=== PATIENT | female | born 1935 | race Caucasian/White ===

== ENCOUNTER 2018-03-07 16:54 | Emergency (ER) | payer MEDICARE, BC ==
[2018-03-07 19:13] VITALS: BP 132/99
--- NOTE | 2018-03-07 19:55 | EDM.PDOC ---
ED HPI GENERAL MEDICAL PROBLEM - General Chief Complaint: Head Injury Time Seen by Provider: 03/07/18 17:01 Source of Information: Reports: Patient, EMS History Limitations: Reports: No Limitations - History of Present Illness INITIAL COMMENTS - FREE TEXT/NARRATIVE: States that she has been dealing with chronic L knee and low back pain. Pt. states that these issues make it hard to walk, and she states that she subsequently fell forward in the parking lot of the grocery store, striking the R side of her head and landing on her knees. She did not have a LOC. No chest pain or shortness of breath pre or post fall. Duration: Constant Location: Reports: Face, Lower Extremity, Right - Related Data Allergies Allergy/AdvReac Type Severity Reaction Status Date / Time codeine Allergy Other Verified 03/07/18 17:21 Home Meds: Home Meds ALPRAZolam [Xanax] 0.25 mg PO TID PRN 08/10/16 [History] Acetaminophen 2 tab PO Q8H PRN 08/10/16 [History] Aspirin 325 mg PO BID 08/10/16 [History] Calcium Carbonate [Tums] 1 tab PO QID PRN 08/10/16 [History] Doxepin [SINEquan] 2 cap PO BEDTIME 08/10/16 [History] FLUoxetine HCl [Fluoxetine HCl] 40 mg PO DAILY 08/10/16 [History] Metoprolol Tartrate [Lopressor] 100 mg PO BID 08/10/16 [History] Multivitamin [Multivitamins] 1 cap PO DAILY 08/10/16 [History] Ranitidine [Zantac] 150 mg PO BID 08/10/16 [History] Simvastatin [Zocor] 80 mg PO BEDTIME 08/10/16 [History] amLODIPine [Norvasc] 1 tab PO DAILY 08/10/16 [History] metFORMIN HCl [Metformin HCl] 1,000 mg PO BIDMEALS 08/10/16 [History] Docusate Sodium/Sennosides [Senna Plus] 1 tab PO DAILY tablet 08/22/16 [Rx] Enalapril [Vasotec] 20 mg PO BID #60 tablet 08/22/16 [Rx] traMADol [Ultram] 50 mg PO Q4H PRN #50 tablet 08/22/16 [Rx] Past Medical History Cardiovascular History: Reports: CAD, Hypertension Gastrointestinal History: Reports: Colon Polyp, GERD, Helicobacter Pylori Other Genitourinary History: bladder repair Musculoskeletal History: Reports: Arthritis Psychiatric History: Reports: Anxiety Endocrine/Metabolic History: Reports: Diabetes, Type II - Infectious Disease History Infectious Disease History: Reports: Helicobacter Pylori - Past Surgical History HEENT Surgical History: Reports: Cataract Surgery, Tonsillectomy Female Surgical History: Reports: Hysterectomy Musculoskeletal Surgical History: Reports: Shoulder Replacement Oncologic Surgical History: Reports: Biopsy of Breast Social & Family History - Family History Family Medical History: Noncontributory - Tobacco Use Smoking Status *Q: Never Smoker ED ROS GENERAL - Review of Systems Review Of Systems: See Below Constitutional: Reports: No Symptoms HEENT: Reports: Other (abrasion/contusion R side of face. No other trauma noted. ) Respiratory: Reports: No Symptoms Cardiovascular: Reports: No Symptoms Endocrine: Reports: No Symptoms GI/Abdominal: Reports: No Symptoms : Reports: No Symptoms Musculoskeletal: Reports: Joint Pain, Other (R knee contusion/abrasion) Skin: Reports: No Symptoms Neurological: Reports: No Symptoms Psychiatric: Reports: No Symptoms Hematologic/Lymphatic: Reports: No Symptoms Immunologic: Reports: No Symptoms ED EXAM, HEAD INJURY - Physical Exam Exam: See Below Exam Limited By: No Limitations General Appearance: Alert, WD/WN, No Apparent Distress Head: Normocephalic, Scalp Ecchymosis Eyes: Bilateral Eye: EOMI, Normal Fundi, Normal Inspection, PERRL Ears: Normal External Exam, Normal Canal, Hearing Grossly Normal, Normal TMs Nose: Normal Inspection, Normal Mucousa, No Blood Throat/Mouth: Normal Inspection, Normal Lips, Normal Teeth, Normal Gums, Normal Oropharynx, Normal Voice, No Airway Compromise Neck: Non-Tender, Full Range of Motion, Normal Alignment, Normal Inspection Respiratory: No Respiratory Distress, Lungs Clear, Normal Breath Sounds, No Accessory Muscle Use, Chest Non-Tender Cardiovascular: Normal Peripheral Pulses, Regular Rate, Rhythm, No Edema, No Gallop, No JVD, No Murmur, No Rub GI/Abdominal Exam: Normal Bowel Sounds, Soft, Non-Tender, No Organomegaly, No Distention, No Abnormal Bruit, No Mass (Female) Exam: Deferred Rectal (Female) Exam: Deferred Back Exam: Full Range of Motion, Normal Inspection, NT Extremities: Other (abrasions and contusion to knees) 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 nml As Tested, No Motor/Sensory Deficits, Alert, Normal Mood/Affect, Oriented x 3 Skin: Normal Color, Warm/Dry Course - Vital Signs Last Recorded V/S: Last Vital Signs Temp 37.2 C 03/07/18 16:54 Pulse 68 03/07/18 18:00 Resp 14 03/07/18 18:00 BP 132/99 H 03/07/18 18:00 Pulse Ox 98 03/07/18 18:00 - Orders/Labs/Meds Orders: Active Orders 24 hr Category Date Time Status Cervical Spine wo Cont [CT] Stat Exams 03/07/18 17:02 Taken Head wo Cont [CT] Stat Exams 03/07/18 17:02 Taken Knee 3V Rt [CR] Stat Exams 03/07/18 17:04 Taken Lumbar Spine 2 or 3V [CR] Stat Exams 03/07/18 17:03 Taken Pelvis 1V or 2V [CR] Routine Exams 03/07/18 Taken - Radiology Interpretation Free Text/Narrative:: CT brain and c-spine were negative. Plain films of the R knee are negative. Departure - Departure Time of Disposition: 19:18 Disposition: Home, Self-Care 01 Clinical Impression: Closed head injury, Facial abrasion - Discharge Information Instructions: Head Injury, Adult, Low Back Sprain Referrals: Renae Hudson MD [Primary Care Provider] - Forms: ED Department Discharge Additional Instructions: Home to rest. Contact the clinic tomorrow ([phone]) to set up a ER follow-up visit in the next 5-7 days. Return to ER if worsening headache, confusion, chest pain, or shortness of breath. - My Orders Last 24 Hours: My Active Orders 03/07/18 Pelvis 1V or 2V [CR] Routine 03/07/18 17:02 Cervical Spine wo Cont [CT] Stat Head wo Cont [CT] Stat 03/07/18 17:03 Lumbar Spine 2 or 3V [CR] Stat 03/07/18 17:04 Knee 3V Rt [CR] Stat - Assessment/Plan Last 24 Hours: My Active Orders 03/07/18 Pelvis 1V or 2V [CR] Routine 03/07/18 17:02 Cervical Spine wo Cont [CT] Stat Head wo Cont [CT] Stat 03/07/18 17:03 Lumbar Spine 2 or 3V [CR] Stat 03/07/18 17:04 Knee 3V Rt [CR] Stat
== END 2018-03-07 19:18 | disposition home or self-care (01) ==
LOC: VM.ED 16:54
DX: S09.90XA Unspecified injury of head, initial encounter (principal); S00.03XA Contusion of scalp, initial encounter; S80.02XA Contusion of left knee, initial encounter; S00.81XA Abrasion of other part of head, initial encounter; I10 Essential (primary) hypertension; E11.9 Type 2 diabetes mellitus without complications; K21.9 Gastro-esophageal reflux disease without esophagitis; F41.9 Anxiety disorder, unspecified; Z79.84 Long term (current) use of oral hypoglycemic drugs; Z79.899 Other long term (current) drug therapy; Z79.82 Long term (current) use of aspirin; Z88.5 Allergy status to narcotic agent; W01.198A Fall on same level from slipping, tripping and stumbling with subsequent striking against other object, initial encounter; Y92.481 Parking lot as the place of occurrence of the external cause
CPT/HCPCS: 70450; 72100; 72125; 72170; 73562-RT; 99284

== ENCOUNTER 2019-02-11 21:44 | Observation (INO) | payer MEDICARE, BC ==
--- NOTE | 2019-02-11 21:56 | EDM.PDOC ---
ED HPI GENERAL MEDICAL PROBLEM - General Chief Complaint: Head Injury Stated Complaint: Fell in bathtub Time Seen by Provider: 02/11/19 21:50 Source of Information: Reports: Patient, EMS, Family History Limitations: Reports: No Limitations - History of Present Illness INITIAL COMMENTS - FREE TEXT/NARRATIVE: The patient lives alone in an apartment. She states that she got tangled up with the rug outside of her shower and she fell backwards into the bathtub. She said that she could not get up and she yelled and could not get any attention from anybody and then she said that she prayed to her late . About an hour and half later she was able to get herself out of the tub and get assistance. As soon as she arrived we put a c-collar on. She did have pain about her neck. We did do a CAT scan of the head and neck. I also did blood work and was awaiting a urine test when I admitted her for observation. Please use this note as her admitting observation note. She came accompanied by her daughter and granddaughter. The patient has fallen before. Her primary is Dr. Alexis. The patient is not on any blood thinners. She did have a slightly low magnesium. Chest x-ray will be done. EKG was done. This was reviewed by myself and signed. We also gave her 800 mg of magnesium oxide. She will get a second dose in the morning. The family was comfortable with this plan. In the family is going to move forward with a "life alert". And also most likely look into assisted living/intermediate which I think is well overdue. The patient did have an emesis 1. She did not lose consciousness. The family was concerned that the patient did lose consciousness and was concerned about bloody emesis. However I don't believe that this was the case after talking and interviewing the patient. He has good strength bilaterally. After the CAT scan was read we are able to take off her c-collar. We did not see any blood on the back of her head no lump or bump. No hematoma. She will be sore from laying in the tub for 90 minutes. I will have her in for observation. Gait was assessed by the nurse and myself and she was walking well by the end of her stay here in the emergency room. I'll require questions are satisfied upon departure to the second floor for observation. I will be signing off of her case to [place]. Location: Reports: Head, Neck Quality: Reports: Ache Severity: Mild Context: Reports: Trauma Associated Symptoms: Reports: No Other Symptoms Neck Pain Score (Numeric/FACES): 4 - Related Data Allergies Allergy/AdvReac Type Severity Reaction Status Date / Time codeine Allergy Confusion Verified 02/11/19 22:22 Home Meds: Home Meds Acetaminophen 1 tab PO Q8H PRN 08/10/16 [History] Aspirin 81 mg PO DAILY 08/10/16 [History] Calcium Carbonate [Tums] 1 tab PO QID PRN 08/10/16 [History] Doxepin [SINEquan] 50 mg PO BEDTIME 08/10/16 [History] FLUoxetine HCl [Fluoxetine HCl] 40 mg PO DAILY 08/10/16 [History] Metoprolol Tartrate [Lopressor] 100 mg PO BID 08/10/16 [History] Simvastatin [Zocor] 80 mg PO BEDTIME 08/10/16 [History] amLODIPine [Norvasc] 1 tab PO DAILY 08/10/16 [History] metFORMIN HCl [Metformin HCl] 1,000 mg PO BIDMEALS 08/10/16 [History] Enalapril [Vasotec] 20 mg PO BID #60 tablet 08/22/16 [Rx] Ergocalciferol (Vitamin D2) [Vitamin D2] 2,000 unit PO DAILY 02/12/19 [History] Ferrous Sulfate 325 mg PO DAILY 02/12/19 [History] Ibuprofen [Advil] 400 mg PO Q6HR PRN 02/12/19 [History] Loperamide [Imodium] 2 mg PO ASDIRECTED PRN 02/12/19 [History] Sennosides/Docusate Sodium [Senokot-S Tablet] 1 each PO ASDIRECTED 02/12/19 [ History] busPIRone [Buspar] 7.5 mg PO BID 02/12/19 [History] Past Medical History Cardiovascular History: Reports: CAD, Hypertension Gastrointestinal History: Reports: Colon Polyp, GERD, Helicobacter Pylori Other Genitourinary History: bladder repair Musculoskeletal History: Reports: Arthritis Psychiatric History: Reports: Anxiety Endocrine/Metabolic History: Reports: Diabetes, Type II - Infectious Disease History Infectious Disease History: Reports: Helicobacter Pylori - Past Surgical History HEENT Surgical History: Reports: Cataract Surgery, Tonsillectomy Female Surgical History: Reports: Hysterectomy Musculoskeletal Surgical History: Reports: Shoulder Replacement Oncologic Surgical History: Reports: Biopsy of Breast Social & Family History - Family History Family Medical History: Noncontributory ED ROS GENERAL - Review of Systems Review Of Systems: ROS reveals no pertinent complaints other than HPI. ED EXAM, HEAD INJURY - Physical Exam Exam: See Below Exam Limited By: No Limitations General Appearance: Alert, Mild Distress, Moderate Distress Head: Atraumatic, Normocephalic. No: Scalp Lacerations, Scalp Swelling, Scalp Abrasions, Scalp Ecchymosis, Scalp Hematoma, Scalp Tenderness, Active Bleeding, Fung's Sign, Facial Tenderness Eyes: Bilateral Eye: EOMI, Normal Inspection, PERRL Ears: Normal External Exam Nose: Normal Inspection, Normal Mucousa, No Blood Throat/Mouth: Normal Inspection, Normal Lips, Normal Teeth, Normal Gums, Normal Oropharynx, Normal Voice, No Airway Compromise, Other (She was having difficulty with her dentures.) Neck: Full Range of Motion, Muscle Spasm, Stiff Neck, Tenderness, Tender Midline Respiratory: No Respiratory Distress, Lungs Clear, Normal Breath Sounds Cardiovascular: Normal Peripheral Pulses, Regular Rate, Rhythm GI/Abdominal Exam: Normal Bowel Sounds, Soft, Non-Tender Extremities: Normal Inspection, Normal Range of Motion Neurologic: No Motor/Sensory Deficits, Alert, Normal Mood/Affect, Oriented x 3 DTR: 2+: Bicep (R), Bicep (L), Tricep (R), Tricep (L), Patella (R), Patella (L) Skin: Normal Color, Warm/Dry - [place] Coma Score Best Eye Response (Monisha): (4) Open Spontaneously Best Verbal Response (Monisha): (5) Oriented Best Motor Response ([place]): (6) Obeys Commands Course - Vital Signs Last Recorded V/S: Last Vital Signs Temp 36.4 C 02/12/19 05:58 Pulse 93 02/12/19 05:58 Resp 18 02/12/19 05:58 BP 152/67 H 02/12/19 05:58 Pulse Ox 92 L 02/12/19 05:58 - Orders/Labs/Meds Orders: Active Orders 24 hr Category Date Time Status Patient Status Manage Transfer [TRANSFER] Routine ADT 02/11/19 23:26 Ordered EKG 12 Lead [EKG Documentation Completion] [RC] STAT Care 02/11/19 21:57 Active Cervical Spine wo Cont [CT] Stat Exams 02/11/19 21:58 Taken Head wo Cont [CT] Stat Exams 02/11/19 21:57 Taken CULTURE URINE [RM] Stat Lab 02/11/19 21:57 Ordered Sodium Chloride 0.9% [Saline Flush] Med 02/11/19 22:21 Active 10 ml FLUSH ASDIRECTED PRN Saline Lock Insert [OM.PC] Routine Oth 02/11/19 22:21 Ordered Medication Orders Magnesium Oxide (Magnesium Oxide) 800 mg PO DAILY ONE Stop: 02/12/19 09:01 Sodium Chloride (Saline Flush) 10 ml FLUSH ASDIRECTED PRN PRN Reason: Keep Vein Open Labs: Laboratory Tests 02/11/19 02/11/19 Range/Units 22:06 22:09 WBC 16.4 H (4.0-10.0) x10^3/uL RBC 3.82 L (4.00-5.50) x10^6/uL Hgb 11.9 L D (12.0-16.0) g/dL Hct 35.1 (33.0-47.0) % MCV 91.9 (78.0-93.0) fL MCH 31.2 (26.0-32.0) pg MCHC 33.9 (32.0-36.0) g/dL RDW Coeff of Colette 14.4 (10.0-15.0) % Plt Count 271 D (130-400) x10^3/uL Neut % (Auto) 80.2 H (50.0-80.0) % Lymph % (Auto) 9.9 L (25.0-50.0) % Owen % (Auto) 8.5 (2.0-11.0) % Eos % (Auto) 1.0 (0.0-4.0) % Baso % (Auto) 0.4 (0.2-1.2) % Sodium 140 (136-145) mmol/L Potassium 4.1 (3.5-5.1) mmol/L Chloride 101 (98-107) mmol/L Carbon Dioxide 25 (21-32) mmol/L Anion Gap 18.1 (10-20) mmol/L BUN 27 H (7-18) mg/dL Creatinine 1.0 (0.55-1.02) mg/dL Est Cr Clr Drug Dosing TNP Estimated GFR (MDRD) 53 Glucose 185 H (74-106) mg/dL Calcium 9.9 (8.5-10.1) mg/dL Corrected Calcium 9.74 (8.5-10.1) mg/dL Magnesium 1.2 L (1.8-2.4) mg/dL Total Bilirubin 0.5 (0.2-1.0) mg/dL AST 45 H (15-37) U/L ALT 43 (14-59) U/L Alkaline Phosphatase 62 (46-116) U/L C-Reactive Protein 0.4 (<=0.9) mg/dL Total Protein 8.2 (6.4-8.2) g/dL Albumin 4.2 (3.4-5.0) g/dL Globulin 4.0 Albumin/Globulin Ratio 1.05 Meds: Medications Generic Name Dose Route Start Last Admin Trade Name Freq PRN Reason Stop Dose Admin Magnesium Oxide 800 mg 02/12/19 09:00 Magnesium Oxide PO 02/12/19 09:01 DAILY ONE Sodium Chloride 10 ml 02/11/19 22:21 Saline Flush FLUSH ASDIRECTED PRN Keep Vein Open Discontinued Medications Generic Name Dose Route Start Last Admin Trade Name Freq PRN Reason Stop Dose Admin Lorazepam 0.5 mg 02/12/19 00:26 02/12/19 00:38 Ativan PO 02/12/19 00:27 0.5 mg ONETIME STA Administration Magnesium Oxide 800 mg 02/11/19 22:54 02/11/19 23:06 Magnesium Oxide PO 02/11/19 22:55 800 mg ONETIME ONE Administration Departure - Departure Time of Disposition: 23:25 Disposition: Refer to Observation Condition: Fair Clinical Impression: Concussion with no loss of consciousness, Strain of neck muscle Head contusion Qualifiers: Encounter type: initial encounter Contusion of head detail: orbital tissues Laterality: unspecified laterality Qualified Code(s): S05.10XA - Contusion of eyeball and orbital tissues, unspecified eye, initial encounter - Discharge Information *PRESCRIPTION DRUG MONITORING PROGRAM REVIEWED*: Not Applicable *COPY OF PRESCRIPTION DRUG MONITORING REPORT IN PATIENT CARLOS ENRIQUE: Not Applicable - My Orders Last 24 Hours: My Active Orders 02/11/19 21:57 EKG 12 Lead [EKG Documentation Completion] [RC] STAT Head wo Cont [CT] Stat CULTURE URINE [RM] Stat 02/11/19 21:58 Cervical Spine wo Cont [CT] Stat 02/11/19 22:21 Sodium Chloride 0.9% [Saline Flush] 10 ml FLUSH ASDIRECTED PRN Saline Lock Insert [OM.PC] Routine 02/11/19 23:26 Patient Status Manage Transfer [TRANSFER] Routine - Assessment/Plan Last 24 Hours: My Active Orders 02/11/19 21:57 EKG 12 Lead [EKG Documentation Completion] [RC] STAT Head wo Cont [CT] Stat CULTURE URINE [RM] Stat 02/11/19 21:58 Cervical Spine wo Cont [CT] Stat 02/11/19 22:21 Sodium Chloride 0.9% [Saline Flush] 10 ml FLUSH ASDIRECTED PRN Saline Lock Insert [OM.PC] Routine 02/11/19 23:26 Patient Status Manage Transfer [TRANSFER] Routine
[2019-02-11] MEDS ORDERED: Sodium Chloride 0.9% 10 ML Syringe FLUSH PRN (22:21)
[2019-02-11 22:37] LABS: CHLORIDE,CL 101 mmol/L (98-107); SODIUM,NA 140 mmol/L (136-145)
[2019-02-11 22:40] LABS: ANION GAP 18.1 mmol/L (10-20)
[2019-02-11] MEDS: Magnesium Oxide 400 MG Tab PO ONE (23:06)
[2019-02-12] MEDS: LORazepam 0.5 MG Tab PO STA (00:38)
[2019-02-12 07:27] LABS: CHLORIDE,CL 103 mmol/L (98-107); SODIUM,NA 140 mmol/L (136-145)
[2019-02-12 07:30] LABS: ANION GAP 13.9 mmol/L (10-20)
--- NOTE | 2019-02-12 07:42 | CT ---
[id number] CT/CT Cervical Spine WO IV Exam: CT Cervical Spine WO IV Clinical Data: TRAUMA COMPARISON: CORRELATION IS MADE WITH THE EXAM OF MARCH 07, 2018. FINDINGS: No fracture or subluxation is seen. There are mild degenerative changes. The C1-C2 articulation is intact. IMPRESSION: NO FRACTURE OR SUBLUXATION. Zev Malone MD 02/12/19 0741 Thank you for allowing us to participate in the care of your patient.
--- NOTE | 2019-02-12 07:43 | CT ---
[id number] CT/CT Head WO IV EXAM: CT Head WO IV CLINICAL DATA: TRAUMA COMPARISON: CORRELATION IS MADE WITH THE EXAM OF MARCH 07, 2018. FINDINGS: There is no mass or mass effect. There is no hemorrhage or hydrocephalus. There are no extra-axial fluid collections. There are no sites of abnormal attenuation. IMPRESSION: NO PLAIN CT EVIDENCE OF ACUTE INTRACRANIAL PROCESS. Zev Malone MD 02/12/19 0742 Thank you for allowing us to participate in the care of your patient.
[2019-02-12] MEDS: Magnesium Oxide 400 MG Tab PO ONE (08:41)
--- NOTE | 2019-02-12 09:27 | CR ---
[id number] RAD/RAD Chest PA or AP 1V EXAM: RAD Chest PA or AP 1V INDICATION: LEUKOCYTOSIS. COMPARISON: June 2018. DISCUSSION: Cardiomediastinal silhouette is unchanged in size and contour. No infiltrate, effusion, pneumothorax, or edema. IMPRESSION: Negative for pneumonia or other acute findings in the chest. José Menendez MD 02/12/19 0926 Thank you for allowing us to participate in the care of your patient.
[2019-02-12 10:41] VITALS: BP 146/70
[2019-02-12] MEDS: Acetaminophen 500 MG Tab PO ONE (10:54)
--- NOTE | 2019-02-12 13:27 | PCM.DCSUM1 ---
Discharge Summary - Hospital Course HPI Initial Comments: Patient presented to the ED at [facility] last evening for the evaluation of a head injury and fall. The patient lives alone in an apartment. She states that she got tangled up with the rug outside of her shower and she fell backwards into the bathtub. She said that she could not get up and she yelled and could not get any attention from anybody and then she said that she prayed to her late . About an hour and half later she was able to get herself out of the tub and get assistance. As soon as she arrived we put a c-collar on. She did have pain about her neck. We did do a CAT scan of the head and neck. I also did blood work and was awaiting a urine test when I admitted her for observation. Please use this note as her admitting observation note. She came accompanied by her daughter and granddaughter. The patient has fallen before. Her primary is Dr. Alexis. The patient is not on any blood thinners. She did have a slightly low magnesium. Chest x-ray will be done. EKG was done. This was reviewed by myself and signed. We also gave her 800 mg of magnesium oxide. She will get a second dose in the morning. The family was comfortable with this plan. The family is going to move forward with a "life alert". And also most likely look into assisted living/[facility] which I think is well overdue. The patient did have an emesis 1. She did not lose consciousness. The family was concerned that the patient did lose consciousness and was concerned about bloody emesis. However I don't believe that this was the case after talking and interviewing the patient. He has good strength bilaterally. After the CAT scan was read we are able to take off her c-collar. We did not see any blood on the back of her head no lump or bump. No hematoma. She will be sore from laying in the tub for 90 minutes. Gait was assessed by the nurse and myself and she was walking well by the end of her stay here in the emergency room. Diagnosis: Stroke: No Modified Motley Scale: No Symptoms at All Modified Joann Scale Score: 0 - Discharge Data Discharge Date: 02/12/19 Discharge Disposition: Home, Self-Care 01 Condition: Good - Patient Summary/Data Operative Procedure(s) Performed: None Consults: Case Management for discharge planning Labs Pending at D/C: None Recommended Follow-up Testing/Procedures: PCP follow up in one week Planned Operative Procedure(s) after DC: None Hospital Course: Patient remained hemodynamically stable and afebrile. No focal neurological deficits during her obs stay. Patient did not have any issues with urination or BM's. Lab work stable. WBC initially elevated, but declining. No issues with eating. Patient ambulates with assistive device without problems. Patient did have a slight headache on day of discharge. She was given Tylenol with good relief. - Patient Instructions Diet: Diabetic Diet Activity: As Tolerated, Rest and Relax Today Driving: Do Not Drive Showering/Bathing: May Shower Notify Provider of: Increased Pain, Nausea and/or Vomiting - Discharge Plan *PRESCRIPTION DRUG MONITORING PROGRAM REVIEWED*: Not Applicable *COPY OF PRESCRIPTION DRUG MONITORING REPORT IN PATIENT CARLOS ENRIQUE: Not Applicable Home Medications: Home Meds Acetaminophen 1 tab PO Q8H PRN 08/10/16 [History] Aspirin 81 mg PO DAILY 08/10/16 [History] Calcium Carbonate [Tums] 1 tab PO QID PRN 08/10/16 [History] Doxepin [SINEquan] 50 mg PO BEDTIME 08/10/16 [History] FLUoxetine HCl [Fluoxetine HCl] 40 mg PO DAILY 08/10/16 [History] Metoprolol Tartrate [Lopressor] 100 mg PO BID 08/10/16 [History] Simvastatin [Zocor] 80 mg PO BEDTIME 08/10/16 [History] amLODIPine [Norvasc] 1 tab PO DAILY 08/10/16 [History] metFORMIN HCl [Metformin HCl] 1,000 mg PO BIDMEALS 08/10/16 [History] Enalapril [Vasotec] 20 mg PO BID #60 tablet 08/22/16 [Rx] Ergocalciferol (Vitamin D2) [Vitamin D2] 2,000 unit PO DAILY 02/12/19 [History] Ferrous Sulfate 325 mg PO DAILY 02/12/19 [History] Loperamide [Imodium] 2 mg PO ASDIRECTED PRN 02/12/19 [History] Sennosides/Docusate Sodium [Senokot-S Tablet] 1 each PO ASDIRECTED 02/12/19 [ History] busPIRone [Buspar] 7.5 mg PO BID 02/12/19 [History] Oxygen Therapy Mode: Room Air Patient Handouts: Head Injury, Adult, [id number] Referrals: Renae Hudson MD [Primary Care Provider] - - Discharge Summary/Plan Comment DC Time >30 min.: No Discharge Summary/Plan Comment: Patient will be discharge home today. No changes with home medications, except recommend stopping NSAIDS. Activity will be as tolerated. Patient will medically require a Home Health evaluation for safety given her recent fall at home. Home Health to assess any safety issues, medication concerns, and ability to carry out ADL's. Dr. Reuben Hudson will follow with patient for Home Health. Case Management discussed option of community services with the patient. Patient will follow up with Dr. Hudson in one week for a recheck. - General Info Date of Service: 02/12/19 Admission Dx/Problem (Free Text: Closed Head Injury Fall at home Subjective Update: Patient offers no specific complaints at the time of discharge. She did have a headache earlier this AM, but that has resolved with Tylenol. She denies any chest pain or SOB. Denies any focal neurological problems. Patient states she has not had any issues with BM's or urination. She is eating well. Functional Status: Reports: Pain Controlled, Tolerating Diet, Ambulating, Urinating. Denies: New Symptoms Numeric/FACES Score: 0 - Review of Systems General: Denies: Fever, Weakness Pulmonary: Denies: Shortness of Breath, Cough Cardiovascular: Denies: Chest Pain, Palpitations Gastrointestinal: Denies: Abdominal Pain, Nausea, Vomiting Musculoskeletal: Reports: No Symptoms Skin: Reports: No Symptoms Neurological: Reports: No Symptoms - Patient Data Vitals - Most Recent: Last Vital Signs Temp 36.2 C 02/12/19 10:00 Pulse 67 02/12/19 10:00 Resp 16 02/12/19 10:00 BP 146/70 H 02/12/19 10:00 Pulse Ox 97 02/12/19 10:00 Weight - Most Recent: 69.808 kg I&O - Last 24 hours: Intake & Output 02/11/19 02/12/19 02/12/19 22:59 06:59 14:59 Intake Total 150 480 Output Total 300 Balance -150 480 Lab Results - Last 24 hrs: Laboratory Results - last 24 hr 02/11/19 02/11/19 02/11/19 Range/Units 22:06 22:09 23:52 WBC 16.4 H (4.0-10.0) x10^3/uL RBC 3.82 L (4.00-5.50) x10^6/uL Hgb 11.9 L D (12.0-16.0) g/dL Hct 35.1 (33.0-47.0) % MCV 91.9 (78.0-93.0) fL MCH 31.2 (26.0-32.0) pg MCHC 33.9 (32.0-36.0) g/dL RDW Coeff of Colette 14.4 (10.0-15.0) % Plt Count 271 D (130-400) x10^3/uL Neut % (Auto) 80.2 H (50.0-80.0) % Lymph % (Auto) 9.9 L (25.0-50.0) % Emmet % (Auto) 8.5 (2.0-11.0) % Eos % (Auto) 1.0 (0.0-4.0) % Baso % (Auto) 0.4 (0.2-1.2) % Sodium 140 (136-145) mmol/L Potassium 4.1 (3.5-5.1) mmol/L Chloride 101 (98-107) mmol/L Carbon Dioxide 25 (21-32) mmol/L Anion Gap 18.1 (10-20) mmol/L BUN 27 H (7-18) mg/dL Creatinine 1.0 (0.55-1.02) mg/dL Est Cr Clr Drug Dosing TNP Estimated GFR (MDRD) 53 Glucose 185 H (74-106) mg/dL Calcium 9.9 (8.5-10.1) mg/dL Corrected Calcium 9.74 (8.5-10.1) mg/dL Magnesium 1.2 L (1.8-2.4) mg/dL Total Bilirubin 0.5 (0.2-1.0) mg/dL AST 45 H (15-37) U/L ALT 43 (14-59) U/L Alkaline Phosphatase 62 (46-116) U/L C-Reactive Protein 0.4 (<=0.9) mg/dL Total Protein 8.2 (6.4-8.2) g/dL Albumin 4.2 (3.4-5.0) g/dL Globulin 4.0 Albumin/Globulin Ratio 1.05 Urine Color Straw H (YELLOW) POC Urine Appearance Clear (CLEAR) POC Urine pH 7.0 (5.0-8.0) Ur Specific [place] 1.005 (1.005-1.030) POC Urine Protein Trace H (NEGATIVE) POC Ur Glucose (UA) Negative (NEGATIVE) POC Urine Ketones Negative (NEGATIVE) POC Ur Occult Blood Trace H (NEGATIVE) POC Urine Nitrite Negative (NEGATIVE) POC Urine Bilirubin Negative (NEGATIVE) POC Urine Urobilinogen 0.2 (0.2) POC U Leukocyte Esteras Small H (NEGATIVE) 02/12/19 02/12/19 Range/Units 06:35 06:35 WBC 12.3 H (4.0-10.0) x10^3/uL RBC 3.49 L (4.00-5.50) x10^6/uL Hgb 10.7 L (12.0-16.0) g/dL Hct 31.9 L (33.0-47.0) % MCV 91.4 (78.0-93.0) fL MCH 30.7 (26.0-32.0) pg MCHC 33.5 (32.0-36.0) g/dL RDW Coeff of Colette 14.3 (10.0-15.0) % Plt Count 184 D (130-400) x10^3/uL Neut % (Auto) 71.9 (50.0-80.0) % Lymph % (Auto) 12.6 L (25.0-50.0) % Emmet % (Auto) 14.0 H (2.0-11.0) % Eos % (Auto) 1.1 (0.0-4.0) % Baso % (Auto) 0.4 (0.2-1.2) % Sodium 140 (136-145) mmol/L Potassium 3.9 (3.5-5.1) mmol/L Chloride 103 (98-107) mmol/L Carbon Dioxide 27 (21-32) mmol/L Anion Gap 13.9 (10-20) mmol/L BUN 20 H (7-18) mg/dL Creatinine 0.8 (0.55-1.02) mg/dL Est Cr Clr Drug Dosing 41.62 Estimated GFR (MDRD) > 60 Glucose 120 H (74-106) mg/dL Calcium 9.1 (8.5-10.1) mg/dL Corrected Calcium (8.5-10.1) mg/dL Magnesium (1.8-2.4) mg/dL Total Bilirubin (0.2-1.0) mg/dL AST (15-37) U/L ALT (14-59) U/L Alkaline Phosphatase (46-116) U/L C-Reactive Protein (<=0.9) mg/dL Total Protein (6.4-8.2) g/dL Albumin (3.4-5.0) g/dL Globulin Albumin/Globulin Ratio Urine Color (YELLOW) POC Urine Appearance (CLEAR) POC Urine pH (5.0-8.0) Ur Specific [place] (1.005-1.030) POC Urine Protein (NEGATIVE) POC Ur Glucose (UA) (NEGATIVE) POC Urine Ketones (NEGATIVE) POC Ur Occult Blood (NEGATIVE) POC Urine Nitrite (NEGATIVE) POC Urine Bilirubin (NEGATIVE) POC Urine Urobilinogen (0.2) POC U Leukocyte Esteras (NEGATIVE) Med Orders - Current: Current Medications Sodium Chloride (Saline Flush) 10 ml FLUSH ASDIRECTED PRN PRN Reason: Keep Vein Open Discontinued Medications Acetaminophen (Tylenol Extra Strength) 1,000 mg PO ONETIME ONE Stop: 02/12/19 10:34 Last Admin: 02/12/19 10:54 Dose: 1,000 mg Lorazepam (Ativan) 0.5 mg PO ONETIME STA Stop: 02/12/19 00:27 Last Admin: 02/12/19 00:38 Dose: 0.5 mg Magnesium Oxide (Magnesium Oxide) 800 mg PO ONETIME ONE Stop: 02/11/19 22:55 Last Admin: 02/11/19 23:06 Dose: 800 mg Magnesium Oxide (Magnesium Oxide) 800 mg PO DAILY ONE Stop: 02/12/19 09:01 Last Admin: 02/12/19 08:41 Dose: 800 mg - Exam Quality Assessment: Denies: DVT Prophylaxis, Skin Breakdown General: Reports: Alert, Oriented, Cooperative, No Acute Distress HEENT: Reports: Pupils Equal, Pupils Reactive, EOMI Neck: Reports: Supple Lungs: Reports: Clear to Auscultation, Normal Respiratory Effort Cardiovascular: Reports: Regular Rate, Regular Rhythm GI/Abdominal Exam: Normal Bowel Sounds, Soft, Non-Tender Skin: Reports: Warm, Dry, Intact Neurological: Reports: No New Focal Deficit *Q Meaningful Use (DIS) - VTE *Q VTE Mechanical Contraindications *Q: At Risk for Falls
== END 2019-02-12 14:35 | disposition home or self-care (01) ==
LOC: VM.ED 21:44 → VM.MS 23:30
PROVIDERS: ADMIT Physician Assistant; ATTEND Physician Assistant
DX: S05.10XA Contusion of eyeball and orbital tissues, unspecified eye, initial encounter (principal); I10 Essential (primary) hypertension; I25.10 Atherosclerotic heart disease of native coronary artery without angina pectoris; E11.9 Type 2 diabetes mellitus without complications; M19.90 Unspecified osteoarthritis, unspecified site; K21.9 Gastro-esophageal reflux disease without esophagitis; F41.9 Anxiety disorder, unspecified; Z79.82 Long term (current) use of aspirin; Z79.899 Other long term (current) drug therapy; Z79.4 Long term (current) use of insulin; Z88.5 Allergy status to narcotic agent; W22.8XXA Striking against or struck by other objects, initial encounter
CPT/HCPCS: 36415; 70450; 71045; 72125; 80048; 80053; 81002; 82962; 83735; 85025; 86140; 87086; 93005; 99217; 99219; 99285-25; A9270-GY; G0378

== ENCOUNTER 2020-08-17 22:48 | Observation (INO) | payer MEDICARE ==
--- NOTE | 2020-08-17 23:14 | EDM.PDOC ---
ED HPI GENERAL MEDICAL PROBLEM - General Stated Complaint: ED Time Seen by Provider: 08/17/20 22:48 Source of Information: Reports: Patient History Limitations: Reports: No Limitations - History of Present Illness INITIAL COMMENTS - FREE TEXT/NARRATIVE: This patient presents to ER with complaints of headache, vertigo, and posterior/lateral neck pain after slipping in the shower and striking her head. Pt. states that she was showering at her assisted living facility unassisted when the incident happened. She normally has help showering. Pt. denies any LOC. No nausea or vomiting post fall. Denies any acute vision loss or change post fall. She states that she is not currently anticoagulated, but does take aspirin daily. Patient denies any numbness/tingling in extremities. Pt. states that she has problems with frequent falls and has fallen and struck her head numerous times over the past several months. Onset: Today Location: Reports: Head, Neck Back of head Pain Score (Numeric/FACES): 5 - Related Data Allergies Allergy/AdvReac Type Severity Reaction Status Date / Time codeine AdvReac Confusion Verified 08/17/20 23:16 Home Meds: Home Meds Acetaminophen 1 tab PO Q8H PRN 08/10/16 [History] Aspirin 81 mg PO DAILY 08/10/16 [History] Calcium Carbonate [Tums] 1 tab PO QID PRN 08/10/16 [History] Doxepin [SINEquan] 50 mg PO BEDTIME 08/10/16 [History] FLUoxetine HCl [Fluoxetine HCl] 40 mg PO DAILY 08/10/16 [History] Metoprolol Tartrate [Lopressor] 100 mg PO BID 08/10/16 [History] Simvastatin [Zocor] 80 mg PO BEDTIME 08/10/16 [History] amLODIPine [Norvasc] 1 tab PO DAILY 08/10/16 [History] metFORMIN HCl [Metformin HCl] 1,000 mg PO BIDMEALS 08/10/16 [History] Enalapril [Vasotec] 20 mg PO BID #60 tablet 08/22/16 [Rx] Ergocalciferol (Vitamin D2) [Vitamin D2] 2,000 unit PO DAILY 02/12/19 [History] Ferrous Sulfate 325 mg PO DAILY 02/12/19 [History] Loperamide [Imodium] 2 mg PO ASDIRECTED PRN 02/12/19 [History] Sennosides/Docusate Sodium [Senokot-S Tablet] 1 each PO ASDIRECTED 02/12/19 [History] busPIRone [Buspar] 7.5 mg PO BID 02/12/19 [History] Past Medical History HEENT History: Reports: Cataract Cardiovascular History: Reports: CAD, Hypertension Other Cardiovascular History: Bilateral carotid artery stenosis. Cardiomegaly. Normal cardiac stress test in 2004. Mitral and aortic valve insufficiency Gastrointestinal History: Reports: Colon Polyp, GERD, Helicobacter Pylori Other Gastrointestinal History: Elevated LFTs Genitourinary History: Reports: Urinary Incontinence, Other (See Below) Other Genitourinary History: bladder repair Musculoskeletal History: Reports: Arthritis Other Musculoskeletal History: Gait abnormality Neurological History: Reports: Other (See Below) Other Neuro History: Insomnia Psychiatric History: Reports: Anxiety Endocrine/Metabolic History: Reports: Diabetes, Type II Hematologic History: Reports: B12 Deficiency, Iron Deficiency, Other (See Below) Other Hematologic History: Vitamin D deficiency Oncologic (Cancer) History: Reports: Malignant Melanoma - Infectious Disease History Infectious Disease History: Reports: Helicobacter Pylori - Past Surgical History HEENT Surgical History: Reports: Cataract Surgery, Tonsillectomy Female Surgical History: Reports: Hysterectomy Musculoskeletal Surgical History: Reports: Shoulder Replacement Oncologic Surgical History: Reports: Biopsy of Breast Social & Family History - Family History Family Medical History: No Pertinent Family History - Caffeine Use Caffeine Use: Reports: Coffee, Tea ED ROS GENERAL - Review of Systems Review Of Systems: See Below Constitutional: Reports: No Symptoms HEENT: Reports: No Symptoms Respiratory: Reports: No Symptoms Cardiovascular: Reports: No Symptoms Endocrine: Reports: No Symptoms GI/Abdominal: Reports: No Symptoms : Reports: No Symptoms Musculoskeletal: Reports: No Symptoms Skin: Reports: No Symptoms Neurological: Reports: Dizziness, Headache Psychiatric: Reports: No Symptoms Hematologic/Lymphatic: Reports: No Symptoms Immunologic: Reports: No Symptoms ED EXAM, GENERAL - Physical Exam Exam: See Below Exam Limited By: No Limitations General Appearance: Alert, WD/WN, No Apparent Distress Eye Exam: Bilateral Eye: EOMI, Normal Fundi, Normal Inspection, PERRL Nose: Normal Inspection, Normal Mucosa, No Blood Throat/Mouth: Normal Inspection, Normal Lips, Normal Teeth, Normal Gums, Normal Oropharynx, Normal Voice, No Airway Compromise Head: Atraumatic, Normocephalic Neck: Normal Inspection, Supple, Tender Lateral, Tender Midline Respiratory/Chest: No Respiratory Distress, Lungs Clear, Normal Breath Sounds, No Accessory Muscle Use, Chest Non-Tender Cardiovascular: Normal Peripheral Pulses, Regular Rate, Rhythm, No Edema, No JVD GI/Abdominal: Soft, Non-Tender, No Distention, No Mass (Female) Exam: Deferred Rectal (Female) Exam: Deferred Extremities: Normal Inspection, Normal Range of Motion, Non-Tender, No Pedal Edema, Normal Capillary Refill Neurological: Alert, Oriented, CN II-XII Intact, Normal Cognition, Normal Reflexes, No Motor/Sensory Deficits Psychiatric: Normal Affect, Normal Mood Skin Exam: Warm, Dry, Intact, Normal Color, No Rash Lymphatic: No Adenopathy Course - Vital Signs Last Recorded V/S: Last Vital Signs Temp 36.6 C 08/17/20 22:48 Pulse 72 08/17/20 22:48 Resp 16 08/17/20 22:48 BP 168/58 H 08/17/20 22:48 Pulse Ox 99 08/17/20 22:48 - Orders/Labs/Meds Orders: Active Orders 24 hr Category Date Time Status Patient Status [ADT] Routine ADT 08/18/20 01:02 Ordered Cervical Spine wo Cont [CT] Stat Exams 08/17/20 23:08 Taken Head wo Cont [CT] Stat Exams 08/17/20 23:07 Taken CORONAVIRUS COVID-19 PCR PHL Stat Lab 08/18/20 01:05 Ordered - Radiology Interpretation Free Text/Narrative:: CT brain shows non-displaced, non-depressed occipital skull fracture. No intracranial pathology or bleeding noted. No focal swelling noted. This fracture may be subacute per radiologist. Departure - Departure Time of Disposition: 01:14 Disposition: Home, Self-Care 01 Clinical Impression: Skull fracture - Discharge Information Referrals: Renae Hudson MD [Primary Care Provider] - Sepsis Event Note (ED) - Focused Exam Vital Signs: Vital Signs Temp Pulse Resp BP Pulse Ox 08/17/20 22:48 36.6 C 72 16 168/58 H 99 - Problem List Review Problem List Initiated/Reviewed/Updated: Yes - My Orders Last 24 Hours: My Active Orders 08/17/20 23:07 Head wo Cont [CT] Stat 08/17/20 23:08 Cervical Spine wo Cont [CT] Stat 08/18/20 01:02 Patient Status [ADT] Routine 08/18/20 01:05 CORONAVIRUS COVID-19 PCR PHL Stat - Assessment/Plan Last 24 Hours: My Active Orders 08/17/20 23:07 Head wo Cont [CT] Stat 08/17/20 23:08 Cervical Spine wo Cont [CT] Stat 08/18/20 01:02 Patient Status [ADT] Routine 08/18/20 01:05 CORONAVIRUS COVID-19 PCR PHL Stat Plan: Discussed case with Dr. lAanis, surgeon at [facility]. He feels that patient does not need to be transferred. Subsequently, we will admit the patient observation with neuro checks. Pt. is a code 1. She will be screened for covid 19 prior to admission. Will have PT and OT see the patient tomorrow to work with her due to her frequent falls. She states that she has fallen several times in the past few months and it at great risk for major injury. All questions were answered. She is a code 1.
[2020-08-18] MEDS ORDERED: Loperamide 2 MG Cap PO PRN ×2 (02:39→08:04)
[2020-08-18] MEDS ORDERED: Calcium Carbonate 750 MG Tab.Chew PO PRN (02:39)
[2020-08-18] MEDS ORDERED: Acetaminophen 500 MG Tab PO PRN (02:39)
[2020-08-18] MEDS: Metoprolol Tartrate 50 MG Tab PO SCH ×2 (03:38→07:54)
[2020-08-18] MEDS: amLODIPine 10 MG Tab PO SCH ×2 (06:30→07:53)
--- NOTE | 2020-08-18 07:59 | CT ---
[id number] CT/CT Head WO IV EXAM: CT Head WO IV CLINICAL DATA: FELL IN SHOWER, HEAD AND NECK PAIN, HIT HEAD, DIZZY COMPARISON STUDY: None FINDINGS: No intracranial hemorrhage, extra-axial fluid collection, mass, or acute ischemia. Generalized parenchymal atrophy with scattered areas of nonspecific white matter disease, commonly seen as sequela of chronic microvascular ischemia. There is a nondisplaced right occipital bone fracture. Surrounding, or edema suggesting this may be chronic though was not seen on the study from February 11, 2019. Paranasal sinuses and mastoid air cells are clear. IMPRESSION: 1. No acute intracranial findings. 2. Nondisplaced occipital bone fracture. No surrounding edema or hematoma. The findings may suggest this is subacute to chronic in nature though was not seen on the prior study from February 11, 2019. Jem Titus DO 08/18/20 [id number] Thank you for allowing us to participate in the care of your patient.
[2020-08-18] MEDS ORDERED: metFORMIN 500 MG Tab PO SCH (08:00)
[2020-08-18] MEDS ORDERED: FLUoxetine 20 MG Cap PO SCH (08:00)
[2020-08-18] MEDS ORDERED: busPIRone 15 MG Tab PO SCH (08:00)
[2020-08-18] MEDS ORDERED: Omeprazole 20 MG Cap.CR PO SCH (08:00)
[2020-08-18] MEDS ORDERED: Aspirin 81 MG Tab.EC PO SCH (08:00)
[2020-08-18] MEDS ORDERED: Famotidine 20 MG Tab PO SCH (08:00)
--- NOTE | 2020-08-18 08:02 | CT ---
[id number] CT/CT Cervical Spine WO IV Exam: CT Cervical Spine WO IV CLINICAL DATA: FALL. COMPARISON: None. FINDINGS: No fracture or subluxation is seen. The C1-C2 articulation is unremarkable. The prevertebral soft tissues are within normal limits. Mild multilevel degenerative changes of the cervical spine. IMPRESSION: NO ACUTE FRACTURE OR SUBLUXATION. Jem Titus DO 08/18/20 0801 Thank you for allowing us to participate in the care of your patient.
[2020-08-18] MEDS ORDERED: Hydrochlorothiazide 12.5 MG Cap PO SCH (08:15)
--- NOTE | 2020-08-18 13:50 | CT ---
[id number] CT/CT Head WO IV EXAM: CT Head WO IV CLINICAL DATA: KNOWN SKULL FX FOLLOWING FOR DC COMPARISON STUDY: 08/17/2020. FINDINGS: No intracranial hemorrhage, extra-axial fluid collection, mass, or acute ischemia. Generalized parenchymal atrophy with scattered areas of nonspecific white matter disease, commonly seen as sequela of chronic microvascular ischemia. There is a stable nondisplaced right occipital bone fracture. IMPRESSION: Stable exam with right occipital nondisplaced skull fracture. Jem Titus DO 08/18/20 [id number] Thank you for allowing us to participate in the care of your patient.
[2020-08-18 14:33] VITALS: BP 165/64; PULSE 64
--- NOTE | 2020-08-18 14:57 | PCM.DCSUM1 ---
Discharge Summary - Hospital Course HPI Initial Comments: This patient presents to ER with complaints of headache, vertigo, and posterior/lateral neck pain after slipping in the shower and striking her head. Pt. states that she was showering at her assisted living facility unassisted when the incident happened. She normally has help showering. Pt. denies any LOC. No nausea or vomiting post fall. Denies any acute vision loss or change post fall. She states that she is not currently anticoagulated, but does take aspirin daily. Patient denies any numbness/tingling in extremities. Pt. states that she has problems with frequent falls and has fallen and struck her head numerous times over the past several months. Diagnosis: Stroke: No - Discharge Data Discharge Date: 08/18/20 Discharge Disposition: DC/Tfer to Acute Hospital 02 Condition: Stable - Referral to Home Health Primary Care Physician: Renae Hudson MD - Discharge Diagnosis/Problem(s) (1) Skull fracture SNOMED Code(s): 51678527 ICD Code: S02.91XA - UNSP FRACTURE OF SKULL, INIT ENCNTR FOR CLOSED FRACTURE Status: Acute Current Visit: Yes - Patient Summary/Data Consults: Consultations 08/18/20 01:57 Consult to Physical Therapy [PT Evaluation and Treatment] [CONS] Routine OT Evaluation and Treatment [CONS] Routine Hospital Course: This patient was admitted from the emergency department for observation overnight after a fall in the shower yesterday in her assisted living center. This patient is supposed to be having assistance when she takes her shower although she did not do this yesterday she slipped and fell backwards landing and hit her head on the ground. She had a CT scan that was completed in the emergency department that had concerns for a subacute nondisplaced nondepressed skull fracture that was not in the area of where the hematoma was where she fell last night. She has multiple falls on a regular basis at [facility] [place]. The trauma surgeon in [place] was consulted and recommended observation overnight with no other management of this nondisplaced nondepressed skull fracture. She rested throughout the night in the hospital. She feels quite well and back to normal is. This morning. She has been evaluated by physical therapy as well as occupational therapy and felt that she is safe to be discharged back to the assisted living center. She had recurrent neuro checks that were unremarkable throughout the night. He feels quite well in the morning she does not have any symptoms at this time. We will discharge her home back to the assisted living center with a follow-up with her primary care early next week. She has any changes in her neuro status she is to recheck. She did have a repeat CT scan today that shows no bleeding or changes in the fracture. Tylenol for headache. She is comfortable with this plan and her questions are answered. - Patient Instructions Other/Special Instructions: Back to the assisted living today. Continue previous medications and therapies. Make sure you are having assistance with your showering. Tylenol as needed for headache. Recheck in the ED if headache not resolved with above therapy or changes in neuro status, such as recurrent vomiting, vision changes or changes in the way your legs arms move or feel. Ice to the sore areas. Recheck with PCP next week for recheck. - Discharge Plan *PRESCRIPTION DRUG MONITORING PROGRAM REVIEWED*: Not Applicable *COPY OF PRESCRIPTION DRUG MONITORING REPORT IN PATIENT CARLOS ENRIQUE: Not Applicable Home Medications: Home Meds Acetaminophen 500 mg PO Q8H PRN MDD 4000mg in 24 hours 08/10/16 [History] Aspirin 81 mg PO DAILY 08/10/16 [History] Calcium Carbonate [Tums] 500 mg PO QID PRN 08/10/16 [History] FLUoxetine HCl [Fluoxetine HCl] 40 mg PO DAILY 08/10/16 [History] Metoprolol Tartrate [Lopressor] 100 mg PO BID 08/10/16 [History] Simvastatin [Zocor] 80 mg PO BEDTIME 08/10/16 [History] amLODIPine [Norvasc] 10 mg PO DAILY 08/10/16 [History] metFORMIN HCl [Metformin HCl] 1,000 mg PO BIDMEALS 08/10/16 [History] Enalapril [Vasotec] 20 mg PO BID #60 tablet 08/22/16 [Rx] Loperamide [Imodium] 2 mg PO ASDIRECTED PRN 02/12/19 [History] Sennosides/Docusate Sodium [Senokot-S Tablet] 1 tab PO DAILY PRN 02/12/19 [History] busPIRone [Buspar] 15 mg PO BID 02/12/19 [History] Cholecalciferol (Vitamin D3) [D3-2000] 2,000 unit PO DAILY 08/18/20 [History] Doxepin [SINEquan] 50 mg PO BEDTIME 08/18/20 [History] Doxepin [SINEquan] 50 mg PO BEDTIME cap 08/18/20 [Rx] Esomeprazole [NexIUM] 20 mg PO DAILY 08/18/20 [History] Famotidine [Pepcid] 10 mg PO DAILY 08/18/20 [History] Oxybutynin Chloride [Ditropan Xl] 10 mg PO BEDTIME 08/18/20 [History] hydroCHLOROthiazide [Hydrochlorothiazide] 12.5 mg PO DAILY 08/18/20 [History] hydroCHLOROthiazide [Hydrochlorothiazide] 12.5 mg PO DAILY cap 08/18/20 [Rx] Forms: ED Department Discharge Referrals: Renae Hudson MD [Primary Care Provider] - - Discharge Summary/Plan Comment DC Time >30 min.: No - General Info Date of Service: 08/18/20 Admission Dx/Problem (Free Text: Subacute skull fracture. Subjective Update: Patient rested well throughout the night. She has no headache double vision blurry vision. No weakness dizziness lightheadedness. No vertigo. No nausea no vomiting. No chest pain no shortness of breath or difficulty breathing no cough or congestion. She has a mild ache in the back of her head right at the site where she fell and there is a hematoma. She has no neck pain. No back pain. No loss of bowel or bladder. She has no abdominal pain nausea or vomiting. She has eaten breakfast and is tolerating that quite well. She did see physical therapy and occupational therapy today and she feels quite well with ambulation. She feels back to baseline and would like to go home. Functional Status: Reports: Pain Controlled - Patient Data Vitals - Most Recent: Last Vital Signs Temp 97.3 F 08/18/20 14:00 Pulse 64 08/18/20 14:00 Resp 19 08/18/20 14:00 BP 165/64 H 08/18/20 14:00 Pulse Ox 99 08/18/20 14:00 Weight - Most Recent: 149 lb 8 oz I&O - Last 24 hours: Intake & Output 08/17/20 08/18/20 08/18/20 22:59 06:59 14:59 Intake Total 500 Output Total 600 Balance -600 500 Lab Results - Last 24 hrs: Laboratory Results - last 24 hr 08/18/20 08/18/20 08/18/20 Range/Units 01:15 02:49 06:21 POC Glucose 142 H 98 (74-106) mg/dL SARS CoV-2 RNA Rapid [place] Negative (NEGATIVE) 08/18/20 Range/Units 11:31 POC Glucose 105 (74-106) mg/dL SARS CoV-2 RNA Rapid [place] (NEGATIVE) Med Orders - Current: Current Medications Acetaminophen (Tylenol Extra Strength) 500 mg PO Q8H PRN PRN Reason: Pain (mild 1-3) Last Admin: 08/18/20 03:37 Dose: 500 mg Documented by: Amlodipine Besylate (Norvasc) 10 mg PO DAILY [facility] Last Admin: 08/18/20 07:53 Dose: Not Given Documented by: Aspirin (Halfprin) 81 mg PO DAILY [facility] Last Admin: 08/18/20 07:53 Dose: 81 mg Documented by: Buspirone HCl (Buspar) 15 mg PO BID [facility] Last Admin: 08/18/20 07:53 Dose: 15 mg Documented by: Calcium Carbonate/Glycine (Tums Extra Strength) 750 mg PO QID PRN PRN Reason: Heartburn Doxepin HCl (Sinequan) 50 mg PO BEDTIME [facility] Enalapril Maleate (Vasotec) 20 mg PO BID [facility] Last Admin: 08/18/20 07:54 Dose: Not Given Documented by: Famotidine (Pepcid) 10 mg PO DAILY [facility] Last Admin: 08/18/20 07:52 Dose: 10 mg Documented by: Fluoxetine HCl (Prozac) 40 mg PO DAILY [facility] Last Admin: 08/18/20 07:52 Dose: 40 mg Documented by: Hydrochlorothiazide (Hydrochlorothiazide) 12.5 mg PO DAILY [facility] Last Admin: 08/18/20 08:31 Dose: 12.5 mg Documented by: Loperamide HCl (Imodium) 2 mg PO BID PRN PRN Reason: Diarrhea Metformin HCl (Glucophage) 1,000 mg PO BIDMEALS [facility] Last Admin: 08/18/20 07:52 Dose: 1,000 mg Documented by: Metoprolol Tartrate (Lopressor) 100 mg PO BID [facility] Last Admin: 08/18/20 07:54 Dose: 100 mg Documented by: Omeprazole (Omeprazole) 20 mg PO DAILY [facility] Last Admin: 08/18/20 07:53 Dose: 20 mg Documented by: Oxybutynin Chloride (Oxybutynin Er) 10 mg PO BEDTIME [facility] Senna/Docusate Sodium (Senna Plus) 2 tab PO DAILY PRN PRN Reason: Constipation Last Admin: 08/18/20 08:31 Dose: 2 tab Documented by: Simvastatin (Zocor) 40 mg PO BEDTIME [facility] Discontinued Medications Loperamide HCl (Imodium) 2 mg PO ASDIRECTED PRN PRN Reason: Diarrhea Senna/Docusate Sodium (Senna Plus) tab PO ASDIRECTED PRN PRN Reason: Constipation - Exam General: Reports: Alert, Oriented HEENT: Reports: Pupils Equal, Pupils Reactive, EOMI, Mucous Membr. Moist/[place] Neck: Reports: Supple, Other (Palpation on the posterior midline spine does not elicit any tenderness bony deformities or step-offs. She has full range of motion without any other symptoms.) Lungs: Reports: Clear to Auscultation, Normal Respiratory Effort Cardiovascular: Reports: Regular Rate, Regular Rhythm GI/Abdominal Exam: Normal Bowel Sounds, Soft, Non-Tender (Female) Exam: Deferred Rectal (Female) Exam: Deferred Back Exam: Reports: Normal Inspection, Full Range of Motion. Denies: Paraspinal Tenderness, Vertebral Tenderness Extremities: Normal Inspection, Normal Range of Motion, No Pedal Edema, Normal Capillary Refill Skin: Reports: Warm, Dry, Intact Neurological: Reports: No New Focal Deficit Psy/Mental Status: Reports: Alert, Normal Affect, Normal Mood
[2020-08-18] MEDS ORDERED: Oxybutynin 5 MG Tab.ER PO SCH (20:00)
[2020-08-18] MEDS ORDERED: Doxepin 25 MG Cap PO SCH (20:00)
[2020-08-18] MEDS ORDERED: Simvastatin 40 MG Tab PO SCH (20:00)
== END 2020-08-18 15:00 | disposition short-term general hospital (02) ==
LOC: VM.ED 22:48 → VM.MS 08-18 01:10
PROVIDERS: ADMIT Physician Assistant; ATTEND Physician Assistant
DX: S02.91XA Unspecified fracture of skull, initial encounter for closed fracture (principal); I25.10 Atherosclerotic heart disease of native coronary artery without angina pectoris; I10 Essential (primary) hypertension; E11.9 Type 2 diabetes mellitus without complications; F41.9 Anxiety disorder, unspecified; E53.8 Deficiency of other specified B group vitamins; Z98.890 Other specified postprocedural states; Z20.828 Contact with and (suspected) exposure to other viral communicable diseases; Z88.5 Allergy status to narcotic agent; Z79.899 Other long term (current) drug therapy; Z79.82 Long term (current) use of aspirin; Z79.84 Long term (current) use of oral hypoglycemic drugs; W18.2XXA Fall in (into) shower or empty bathtub, initial encounter
CPT/HCPCS: 70450; 72125; 82962; 97161-GP; 99217; 99220; 99284; 99285-25; A9270-GY; G0378; U0002

== ENCOUNTER 2021-07-27 16:25 | Emergency (ER) | payer MEDICARE ==
--- NOTE | 2021-07-27 16:54 | EDM.PDOC ---
ED HPI GENERAL MEDICAL PROBLEM - General Chief Complaint: Back Pain or Injury Stated Complaint: fall at home. Time Seen by Provider: 07/27/21 16:40 Source of Information: Reports: Patient History Limitations: Reports: No Limitations - History of Present Illness INITIAL COMMENTS - FREE TEXT/NARRATIVE: Patient comes emergency department today from home by ambulance with concerns of a fall. This patient relates that she is a "dav", and she is sure that she is going to from falling at home some time. This patient who typically follows at home and actually had a skull fracture approximately 1 years ago ago from a fall was ambulating without her walker which she knows that she is supposed to when she lost her balance fell backwards striking the posterior aspect of her head on the toilet. She also injured her posterior left rib cage as well. She did not lose consciousness. She does have a basilar headache. No visual acuity changes. No diplopia. No paresthesias of her upper or lower extremities. No change in functionality of her upper or lower extremities. She does complain of some "stiffness" in her neck but no overt pain. Complains of pain in the left posterior rib region about ribs 789. No shortness of breath or difficulty breathing. No chest pain. Her fall was clearly mechanical she did not have any weakness dizziness lightheadedness syncope palpitations prior to her fall. She said no recent fever chills. No nausea or vomiting. No hematuria dysuria urinary frequency. No black tarry stools or diarrhea. Is been Covid vaccinated. - Related Data Allergies Allergy/AdvReac Type Severity Reaction Status Date / Time codeine AdvReac Confusion Verified 08/18/20 08:05 Home Meds: Home Meds Acetaminophen 500 mg PO Q8H PRN MDD 4000mg in 24 hours 08/10/16 [History] Aspirin 81 mg PO DAILY 08/10/16 [History] Calcium Carbonate [Tums] 500 mg PO QID PRN 08/10/16 [History] FLUoxetine HCl [Fluoxetine HCl] 40 mg PO DAILY 08/10/16 [History] Metoprolol Tartrate [Lopressor] 100 mg PO BID 08/10/16 [History] Simvastatin [Zocor] 80 mg PO BEDTIME 08/10/16 [History] amLODIPine [Norvasc] 10 mg PO DAILY 08/10/16 [History] metFORMIN HCl [Metformin HCl] 1,000 mg PO BIDMEALS 08/10/16 [History] Enalapril [Vasotec] 20 mg PO BID #60 tablet 08/22/16 [Rx] Loperamide [Imodium] 2 mg PO ASDIRECTED PRN 02/12/19 [History] Sennosides/Docusate Sodium [Senokot-S Tablet] 1 tab PO DAILY PRN 02/12/19 [History] busPIRone [Buspar] 15 mg PO BID 02/12/19 [History] Cholecalciferol (Vitamin D3) [D3-2000] 2,000 unit PO DAILY 08/18/20 [History] Doxepin [SINEquan] 50 mg PO BEDTIME 08/18/20 [History] Doxepin [SINEquan] 50 mg PO BEDTIME cap 08/18/20 [Rx] Esomeprazole [NexIUM] 20 mg PO DAILY 08/18/20 [History] Famotidine [Pepcid] 10 mg PO DAILY 08/18/20 [History] Oxybutynin Chloride [Ditropan Xl] 10 mg PO BEDTIME 08/18/20 [History] hydroCHLOROthiazide [Hydrochlorothiazide] 12.5 mg PO DAILY 08/18/20 [History] hydroCHLOROthiazide [Hydrochlorothiazide] 12.5 mg PO DAILY cap 08/18/20 [Rx] Past Medical History HEENT History: Reports: Cataract Cardiovascular History: Reports: CAD, Hypertension Other Cardiovascular History: Bilateral carotid artery stenosis. Cardiomegaly. Normal cardiac stress test in 2004. Mitral and aortic valve insufficiency Gastrointestinal History: Reports: Colon Polyp, GERD, Helicobacter Pylori Other Gastrointestinal History: Elevated LFTs Genitourinary History: Reports: Urinary Incontinence, Other (See Below) Other Genitourinary History: bladder repair Musculoskeletal History: Reports: Arthritis Other Musculoskeletal History: Gait abnormality Neurological History: Reports: Other (See Below) Other Neuro History: Insomnia Psychiatric History: Reports: Anxiety Endocrine/Metabolic History: Reports: Diabetes, Type II Hematologic History: Reports: B12 Deficiency, Iron Deficiency, Other (See Below) Other Hematologic History: Vitamin D deficiency Oncologic (Cancer) History: Reports: Malignant Melanoma - Infectious Disease History Infectious Disease History: Reports: Helicobacter Pylori - Past Surgical History HEENT Surgical History: Reports: Cataract Surgery, Tonsillectomy GI Surgical History: Reports: Cholecystectomy, Colonoscopy, Other (See Below) Other GI Surgeries/Procedures: Hemorroidectomy (external ligation) Female Surgical History: Reports: Hysterectomy Musculoskeletal Surgical History: Reports: Shoulder Replacement Other Musculoskeletal Surgeries/Procedures:: Both knees have been replaced Oncologic Surgical History: Reports: Biopsy of Breast Social & Family History - Family History Family Medical History: No Pertinent Family History - Caffeine Use Caffeine Use: Reports: Coffee, Tea ED ROS GENERAL - Review of Systems Review Of Systems: Comprehensive ROS is negative, except as noted in HPI. ED EXAM, UPPER BACK/NECK PAIN - Physical Exam Exam: See Below Exam Limited By: No Limitations General Appearance: Alert, WD/WN, No Apparent Distress Eye Exam: Bilateral Eye: EOMI, PERRL (Pupils 2 mm progress bilaterally.) Ears Exam: Normal External Exam, Hearing Grossly Normal, Cerumen Impaction. No: Normal Canal (Bilateral canals are occluded with cerumen.) Nose Exam: Normal Inspection, Normal Mucousa, No Blood Throat/Mouth Exam: Normal Inspection, Normal Lips, Normal Teeth, Normal Voice Head Exam: Atraumatic, Normocephalic Neck Exam: Non-Tender, Full Range of Motion, Normal Alignment, Normal Inspection Nexus Criteria: No: Posterior, Midline Cervical Tenderness, Evidence of Intoxication, Altered Level of Consciousness, Focal Neurological Deficit, Painful Distraction Injuries Cardiovascular/Respiratory: Regular Rate, Rhythm, No M/R/G, Normal Peripheral Pulses, No Respiratory Distress GI/Abdominal: Normal Bowel Sounds, Soft, Non-Tender, No Organomegaly (Female) Exam: Deferred Rectal (Female) Exam: Deferred Back Exam: Paraspinal Tenderness (She does have some tenderness on the posterior midclavicular line about ribs 79. There is no subcutaneous emphysema bruising swelling ecchymosis. Rest of the back is atraumatic.). 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 operator II-XII nml As Tested, No Motor/Sensory Deficits, Alert, Normal Mood/Affect, Oriented x 3 Psychiatric: Normal Affect, Normal Mood Skin Exam: Normal Color, Warm/Dry Lymphatic: No Adenopathy Course - Vital Signs Last Recorded V/S: Last Vital Signs Temp 98.3 F 07/27/21 16:40 Pulse 62 07/27/21 16:40 Resp 16 07/27/21 16:40 BP 177/68 H 07/27/21 16:40 Pulse Ox 97 07/27/21 16:40 - Orders/Labs/Meds Orders: Active Orders 24 hr Category Date Time Status CULTURE URINE [RM] Stat Lab 07/27/21 18:00 Received Labs: Laboratory Tests 07/27/21 07/27/21 07/27/21 Range/Units 07:27 07:27 07:27 WBC 9.3 (4.0-10.0) x10^3/uL RBC 3.50 L (4.00-5.50) x10^6/uL Hgb 10.2 L (12.0-16.0) g/dL Hct 30.8 L (33.0-47.0) % MCV 88.0 (78.0-93.0) fL MCH 29.1 (26.0-32.0) pg MCHC 33.1 (32.0-36.0) g/dL RDW Coeff of Colette 15.6 H (10.0-15.0) % Plt Count 274 (130-400) x10^3/uL Immature Gran % (Auto) 1.50 H (0.00-0.43) % Neut % (Auto) 66.5 (50.0-80.0) % Lymph % (Auto) 17.0 L (25.0-50.0) % Gosper % (Auto) 9.1 (2.0-11.0) % Eos % (Auto) 4.7 H (0.0-4.0) % Baso % (Auto) 1.2 (0.2-1.2) % Neut # (Auto) 6.2 (1.8-7.7) x10^3/uL Lymph # (Auto) 1.6 (1.0-4.8) x10^3/uL Gosper # (Auto) 0.8 (0.0-0.8) x10^3/uL Eos # (Auto) 0.4 (0.0-0.5) x10^3/uL Baso # (Auto) 0.1 (0.0-0.2) x10^3/uL Immature Gran # (Auto) 0.14 H (0.00-0.07) x10^3/uL PT 10.4 (9.9-12.5) SEC INR 0.9 L (2.0-3.5) APTT 22.9 L (25.6-32.8) SEC Sodium 142 (136-145) mmol/L Potassium 4.5 (3.5-5.1) mmol/L Chloride 103 (98-107) mmol/L Carbon Dioxide 22 (21-32) mmol/L Anion Gap 21.5 H (5-15) mmol/L BUN 30 H (7-18) mg/dL Creatinine 1.2 H (0.55-1.02) mg/dL Est Cr Clr Drug Dosing 26.33 mL/min Estimated GFR (MDRD) 43 Glucose 137 H (70-99) mg/dL Lactic Acid (0.4-2.0) mmol/L Calcium 9.2 (8.5-10.1) mg/dL Corrected Calcium 9.3 (8.5-10.1) mg/dL Total Bilirubin 0.3 (0.2-1.0) mg/dL AST 42 H (15-37) U/L ALT 46 (14-59) U/L Alkaline Phosphatase 60 (46-116) U/L Total Protein 8.3 H (6.4-8.2) g/dL Albumin 3.9 (3.4-5.0) g/dL Globulin 4.4 Albumin/Globulin Ratio 0.89 Urine Color (YELLOW) Urine Appearance (CLEAR) Urine pH (5.0-8.0) Ur Specific [place] Urine Protein (NEGATIVE) mg/dL Urine Glucose (UA) (NEGATIVE) mg/dL Urine Ketones (NEGATIVE) mg/dL Urine Occult Blood (NEGATIVE) Urine Nitrite (NEGATIVE) Urine Bilirubin (NEGATIVE) Urine Urobilinogen (0.2) EU/dL Ur Leukocyte Esterase (NEGATIVE) Urine RBC (NOT SEEN) /HPF Urine WBC (NOT SEEN) /HPF Ur Squamous Epith Cells (NOT SEEN) /HPF Urine Bacteria (NOT SEEN) /HPF Urine Mucus (NOT SEEN) /LPF Urine Opiates Screen (NEGATIVE) Ur Buprenorphine Scrn (NEGATIVE) Ur Oxycodone Screen (NEGATIVE) Urine Methadone Screen (NEGATIVE) Ur Barbiturates Screen (NEGATIVE) Ur Phencyclidine Scrn (NEGATIVE) Ur Amphetamine Screen (NEGATIVE) U Methamphetamines Scrn (NEGATIVE) Urine MDMA Screen (NEGATIVE) U Benzodiazepines Scrn (NEGATIVE) U Cocaine Metab Screen (NEGATIVE) U Marijuana (THC) Screen (NEGATIVE) Ethyl Alcohol (0-3) mg/dL 07/27/21 07/27/21 07/27/21 Range/Units 17:27 18:00 18:00 WBC (4.0-10.0) x10^3/uL RBC (4.00-5.50) x10^6/uL Hgb (12.0-16.0) g/dL Hct (33.0-47.0) % MCV (78.0-93.0) fL MCH (26.0-32.0) pg MCHC (32.0-36.0) g/dL RDW Coeff of Colette (10.0-15.0) % Plt Count (130-400) x10^3/uL Immature Gran % (Auto) (0.00-0.43) % Neut % (Auto) (50.0-80.0) % Lymph % (Auto) (25.0-50.0) % Gosper % (Auto) (2.0-11.0) % Eos % (Auto) (0.0-4.0) % Baso % (Auto) (0.2-1.2) % Neut # (Auto) (1.8-7.7) x10^3/uL Lymph # (Auto) (1.0-4.8) x10^3/uL Gosper # (Auto) (0.0-0.8) x10^3/uL Eos # (Auto) (0.0-0.5) x10^3/uL Baso # (Auto) (0.0-0.2) x10^3/uL Immature Gran # (Auto) (0.00-0.07) x10^3/uL PT (9.9-12.5) SEC INR (2.0-3.5) APTT (25.6-32.8) SEC Sodium (136-145) mmol/L Potassium (3.5-5.1) mmol/L Chloride (98-107) mmol/L Carbon Dioxide (21-32) mmol/L Anion Gap (5-15) mmol/L BUN (7-18) mg/dL Creatinine (0.55-1.02) mg/dL Est Cr Clr Drug Dosing mL/min Estimated GFR (MDRD) Glucose (70-99) mg/dL Lactic Acid (0.4-2.0) mmol/L Calcium (8.5-10.1) mg/dL Corrected Calcium (8.5-10.1) mg/dL Total Bilirubin (0.2-1.0) mg/dL AST (15-37) U/L ALT (14-59) U/L Alkaline Phosphatase (46-116) U/L Total Protein (6.4-8.2) g/dL Albumin (3.4-5.0) g/dL Globulin Albumin/Globulin Ratio Urine Color Yellow (YELLOW) Urine Appearance Slightly cloudy H (CLEAR) Urine pH 5.5 (5.0-8.0) Ur Specific [place] 1.020 Urine Protein 100 H (NEGATIVE) mg/dL Urine Glucose (UA) Negative (NEGATIVE) mg/dL Urine Ketones Negative (NEGATIVE) mg/dL Urine Occult Blood Moderate H (NEGATIVE) Urine Nitrite Negative (NEGATIVE) Urine Bilirubin Negative (NEGATIVE) Urine Urobilinogen 0.2 (0.2) EU/dL Ur Leukocyte Esterase Small H (NEGATIVE) Urine RBC 5-10 H (NOT SEEN) /HPF Urine WBC 10-20 H (NOT SEEN) /HPF Ur Squamous Epith Cells Few H (NOT SEEN) /HPF Urine Bacteria Occasional H (NOT SEEN) /HPF Urine Mucus Occasional H (NOT SEEN) /LPF Urine Opiates Screen Positive H (NEGATIVE) Ur Buprenorphine Scrn Negative (NEGATIVE) Ur Oxycodone Screen Negative (NEGATIVE) Urine Methadone Screen Negative (NEGATIVE) Ur Barbiturates Screen Negative (NEGATIVE) Ur Phencyclidine Scrn Negative (NEGATIVE) Ur Amphetamine Screen Negative (NEGATIVE) U Methamphetamines Scrn Negative (NEGATIVE) Urine MDMA Screen Negative (NEGATIVE) U Benzodiazepines Scrn Negative (NEGATIVE) U Cocaine Metab Screen Negative (NEGATIVE) U Marijuana (THC) Screen Negative (NEGATIVE) Ethyl Alcohol < 3 (0-3) mg/dL 07/27/21 Range/Units 18:11 WBC (4.0-10.0) x10^3/uL RBC (4.00-5.50) x10^6/uL Hgb (12.0-16.0) g/dL Hct (33.0-47.0) % MCV (78.0-93.0) fL MCH (26.0-32.0) pg MCHC (32.0-36.0) g/dL RDW Coeff of Colette (10.0-15.0) % Plt Count (130-400) x10^3/uL Immature Gran % (Auto) (0.00-0.43) % Neut % (Auto) (50.0-80.0) % Lymph % (Auto) (25.0-50.0) % Gosper % (Auto) (2.0-11.0) % Eos % (Auto) (0.0-4.0) % Baso % (Auto) (0.2-1.2) % Neut # (Auto) (1.8-7.7) x10^3/uL Lymph # (Auto) (1.0-4.8) x10^3/uL Gosper # (Auto) (0.0-0.8) x10^3/uL Eos # (Auto) (0.0-0.5) x10^3/uL Baso # (Auto) (0.0-0.2) x10^3/uL Immature Gran # (Auto) (0.00-0.07) x10^3/uL PT (9.9-12.5) SEC INR (2.0-3.5) APTT (25.6-32.8) SEC Sodium (136-145) mmol/L Potassium (3.5-5.1) mmol/L Chloride (98-107) mmol/L Carbon Dioxide (21-32) mmol/L Anion Gap (5-15) mmol/L BUN (7-18) mg/dL Creatinine (0.55-1.02) mg/dL Est Cr Clr Drug Dosing mL/min Estimated GFR (MDRD) Glucose (70-99) mg/dL Lactic Acid 5.3 H* (0.4-2.0) mmol/L Calcium (8.5-10.1) mg/dL Corrected Calcium (8.5-10.1) mg/dL Total Bilirubin (0.2-1.0) mg/dL AST (15-37) U/L ALT (14-59) U/L Alkaline Phosphatase (46-116) U/L Total Protein (6.4-8.2) g/dL Albumin (3.4-5.0) g/dL Globulin Albumin/Globulin Ratio Urine Color (YELLOW) Urine Appearance (CLEAR) Urine pH (5.0-8.0) Ur Specific [place] Urine Protein (NEGATIVE) mg/dL Urine Glucose (UA) (NEGATIVE) mg/dL Urine Ketones (NEGATIVE) mg/dL Urine Occult Blood (NEGATIVE) Urine Nitrite (NEGATIVE) Urine Bilirubin (NEGATIVE) Urine Urobilinogen (0.2) EU/dL Ur Leukocyte Esterase (NEGATIVE) Urine RBC (NOT SEEN) /HPF Urine WBC (NOT SEEN) /HPF Ur Squamous Epith Cells (NOT SEEN) /HPF Urine Bacteria (NOT SEEN) /HPF Urine Mucus (NOT SEEN) /LPF Urine Opiates Screen (NEGATIVE) Ur Buprenorphine Scrn (NEGATIVE) Ur Oxycodone Screen (NEGATIVE) Urine Methadone Screen (NEGATIVE) Ur Barbiturates Screen (NEGATIVE) Ur Phencyclidine Scrn (NEGATIVE) Ur Amphetamine Screen (NEGATIVE) U Methamphetamines Scrn (NEGATIVE) Urine MDMA Screen (NEGATIVE) U Benzodiazepines Scrn (NEGATIVE) U Cocaine Metab Screen (NEGATIVE) U Marijuana (THC) Screen (NEGATIVE) Ethyl Alcohol (0-3) mg/dL Meds: Medications Discontinued Medications Generic Name Dose Route Start Last Admin Trade Name Freq PRN Reason Stop Dose Admin Lactated Ringer's 1,000 mls @ 125 mls/hr 07/27/21 18:15 07/27/21 18:24 Ringers, Lactated IV 125 mls/hr ASDIRECTED KASSIDY Administration Morphine Sulfate 4 mg 07/27/21 18:12 07/27/21 18:28 Morphine 4 Mg/Ml Syringe IVPUSH 07/27/21 18:13 4 mg ONETIME ONE Administration Ondansetron HCl 4 mg 07/27/21 18:12 07/27/21 18:25 Ondansetron 4 Mg/2 Ml Sdv IV 07/27/21 18:13 4 mg ONETIME ONE Administration - Radiology Interpretation Free Text/Narrative:: Chest x-ray with rib detail per radiology shows acute left fourth through 10th posterior rib fractures some which demonstrate mild displacement and angulation. Prominent heart size. No mention of pneumothorax or hemothorax or pleural effusion per radiology. CT of the head per radiology shows no acute intercranial findings. Some chronic small vessel ischemic changes consistent with age. CT cervical spine per radiology shows no acute findings. - Re-Assessments/Exams Free Text/Narrative Re-Assessment/Exam: IV was established labs are drawn. The patient was given morphine for pain and zofran for prophylactic nausea. I reviewed the xray results with the patient and her daughter. With this multiple rib fractures and her age she should be evaluated by a trauma surgeon. I called and spoke with Dr. Lukas Bird at [facility] in [place]. HPI ER COURSE findings and concerns were relayed to Dr. Anderson. Her questions were answered and she was accepted for transfer to [facility] in the ED for trauma evaluation. Labs are rather unremarkable other than a lactic acid of 5 which is most likely from trauma. She is not hypotensive nor febrile. Departure - Departure Time of Disposition: 17:53 Disposition: DC/Tfer to [facility] 02 Clinical Impression: Fall Qualifiers: Encounter type: initial encounter Qualified Code(s): W19.XXXA - Unspecified fall, initial encounter Multiple fractures of ribs of left side Qualifiers: Encounter type: initial encounter Fracture type: closed Qualified Code(s): S22.42XA - Multiple fractures of ribs, left side, initial encounter for closed fracture - Discharge Information Referrals: Renae Hudson MD [Primary Care Provider] - Forms: ED Department Discharge, Interfacility Transfer LANE Sepsis Event Note (ED) - Focused Exam Vital Signs: Vital Signs Temp Pulse Resp BP Pulse Ox 07/27/21 16:40 98.3 F 62 16 177/68 H 97 - My Orders Last 24 Hours: My Active Orders 07/27/21 18:00 CULTURE URINE [RM] Stat - Assessment/Plan Last 24 Hours: My Active Orders 07/27/21 18:00 CULTURE URINE [RM] Stat
[2021-07-27 17:26] VITALS: BP 177/68; PULSE 62
--- NOTE | 2021-07-27 17:46 | CT ---
[id number] CT/CT Head WO IV EXAM: NONCONTRAST HEAD CT INDICATION: FALL, HEAD INJURY. PREVIOUS FRACTURE SKULL. COMPARISON: August 18, 2020. DISCUSSION: Mild to moderate generalized atrophy. Moderate multifocal white matter hypoattenuation is nonspecific, but generally ascribed to chronic small vessel ischemia. No mass effect or midline shift. No acute hemorrhage or extra-axial fluid collection. No acute territorial infarct is identified. A limited look at the orbits and paranasal sinuses is unremarkable. A nondisplaced right occipital skull fracture is less evident than on the prior study. IMPRESSION: 1. No acute intracranial findings. Loco Bucio MD 07/27/21 [id number] Thank you for allowing us to participate in the care of your patient.
--- NOTE | 2021-07-27 17:49 | CT ---
[id number] CT/CT Cervical Spine WO IV EXAM: NONCONTRAST CERVICAL SPINE CT INDICATION: FALL, NECK PAIN. COMPARISON: August 17, 2020. DISCUSSION: The vertebral bodies are normal in height and alignment. No fracture or suspicious osseous lesion is identified. Mild to moderate facet arthropathy throughout the cervical spine. IMPRESSION: 1. No acute findings. Loco Bucio MD 07/27/21 0116 Thank you for allowing us to participate in the care of your patient.
[2021-07-27 17:51] LABS: ANION GAP 21.5 mmol/L (5-15)
[2021-07-27 17:56] LABS: PTT,PARTIAL THROMBOPLSTIN TIME 22.9 SEC (25.6-32.8)
--- NOTE | 2021-07-27 17:57 | CR ---
[id number] RAD/RAD Ribs Left EXAM: RAD Ribs Left INDICATION: FALL, POSTERIOR LEFT RIB PAIN 7-9. COMPARISON: Chest radiographs February 12, 2019. DISCUSSION: Acute left fourth through tenth posterior rib fractures some of which demonstrate mild displacement and angulation. Prominent heart size. IMPRESSION: 1. Acute left fourth through tenth posterior rib fractures. Loco Bucio MD 07/27/21 [id number] Thank you for allowing us to participate in the care of your patient.
[2021-07-27] MEDS ORDERED: Morphine 4 MG/ML Syringe IVPUSH ONE (18:12)
[2021-07-27] MEDS ORDERED: Ondansetron 4 MG/2 ML SDV IV ONE (18:12)
[2021-07-27] MEDS ORDERED: Lactated Ringers 1,000 ML IV SCH (18:15)
[2021-07-27 19:13] LABS: BARBITURATE SCREEN,URINE NEGATIVE (NEGATIVE)
[2021-07-27 19:14] LABS: BENZODIAZEPINES SCREEN,URINE NEGATIVE (NEGATIVE); BUPRENORPHINE SCREEN,URINE NEGATIVE (NEGATIVE); METHAMPHETAMINE SCREEN, URINE NEGATIVE (NEGATIVE); THC SCREEN,URINE 50 NG/ML NEGATIVE (NEGATIVE)
== END 2021-07-27 19:06 | disposition short-term general hospital (02) ==
LOC: VM.ED 16:25
DX: S22.42XA Multiple fractures of ribs, left side, initial encounter for closed fracture (principal); I25.10 Atherosclerotic heart disease of native coronary artery without angina pectoris; I10 Essential (primary) hypertension; K21.9 Gastro-esophageal reflux disease without esophagitis; E11.9 Type 2 diabetes mellitus without complications; Z88.5 Allergy status to narcotic agent; Z79.82 Long term (current) use of aspirin; Z79.899 Other long term (current) drug therapy; W18.09XA Striking against other object with subsequent fall, initial encounter; Y92.009 Unspecified place in unspecified non-institutional (private) residence as the place of occurrence of the external cause
CPT/HCPCS: 36415; 70450; 71100; 72125; 80053; 80305; 80307; 81001; 83605; 85025; 85610; 85730; 87086; 87088; 87186; 96374; 96375; 99284; J2270; J2405; J7120

== ENCOUNTER 2022-03-09 14:14 | Inpatient (IN) | payer MEDICARE ==
[2022-03-09 15:18] LABS: CHLORIDE,CL 104 mmol/L (98-107); SODIUM,NA 139 mmol/L (136-145)
[2022-03-09 15:19] LABS: ANION GAP 18.6 mmol/L (5-15); ESTIMATED GFR 40 mL/min (>=60)
[2022-03-09 15:54] LABS: CORONAVIRUS COVID-19 NAA NEGATIVE (NEGATIVE)
[2022-03-09] MEDS ORDERED: Iopamidol 612 MG/ML 100 ML Bottle IVPUSH ONE (17:16)
[2022-03-09] MEDS: cefTRIAXone 2 GM Vial IVPUSH ONE ×2 (18:02→19:47)
[2022-03-09] MEDS ORDERED: Morphine 2 MG/ML SYRINGE IVPUSH ONE (19:07)
[2022-03-09] MEDS ORDERED: Ondansetron 4 MG/2 ML SDV IVPUSH ONE (19:07)
[2022-03-09] MEDS ORDERED: Promethazine 6.25 MG in Sodium Chloride 0.9% 100 ML IV PRN (19:20)
[2022-03-09] MEDS ORDERED: Ondansetron 4 MG/2 ML SDV IVPUSH PRN (19:20)
[2022-03-09] MEDS ORDERED: Acetaminophen 325 MG Tab PO PRN (19:28)
[2022-03-09] MEDS ORDERED: LORazepam 2 MG/ML SDV IVPUSH PRN (19:45)
[2022-03-09] MEDS ORDERED: Flumazenil 0.1 MG/ML 5 ML MDV IVPUSH PRN (19:45)
[2022-03-09] MEDS: metroNIDAZOLE/Normal Saline 500 MG in Premix Bag 1 BAG IV SCH (20:09)
[2022-03-09] MEDS: Sodium Chloride 0.9% 1,000 ML IV SCH (20:11)
[2022-03-09] MEDS ORDERED: Calcium Carbonate 750 MG Tab.Chew PO PRN (20:12)
[2022-03-09] MEDS ORDERED: Docusate Sodium 100 MG Cap PO PRN (20:12)
[2022-03-09] MEDS ORDERED: Acetaminophen 500 MG Tab PO PRN (20:12)
[2022-03-09] MEDS: Acetaminophen 500 MG Tab PO SCH (21:14)
[2022-03-09] MEDS: Doxepin 10 MG Cap PO SCH (21:15)
[2022-03-09] MEDS: Metoprolol Tartrate 50 MG Tab PO SCH (21:16)
[2022-03-09] MEDS: busPIRone 15 MG Tab PO SCH (21:16)
[2022-03-10] MEDS: HYDROmorphone 0.5 MG/0.5 ML Syringe IVPUSH PRN ×2 (00:06→15:46)
[2022-03-10] MEDS: metroNIDAZOLE/Normal Saline 500 MG in Premix Bag 1 BAG IV SCH ×3 (03:41→20:15)
[2022-03-10] MEDS: Pantoprazole 20 MG Tab, Delayed Release PO SCH (06:42)
[2022-03-10 07:04] LABS: ANION GAP 18.1 mmol/L (5-15)
[2022-03-10] MEDS ORDERED: Glucagon,Human Recombinant 1 MG Vial IM PRN (08:16)
[2022-03-10] MEDS ORDERED: 50% Dextrose in Water 50 ML Syringe IVPUSH PRN (08:16)
[2022-03-10] MEDS: Sodium Chloride 0.9% 1,000 ML IV SCH (08:59)
[2022-03-10] MEDS: Magnesium Sulfate/Water 2 GM in Premix Bag 1 BAG IV SCH (09:00)
[2022-03-10] MEDS: methylPREDNISolone Sodium Succinate 125 MG/2 ML SDV IVPUSH SCH (09:01)
[2022-03-10] MEDS: cefTRIAXone 1 GM Vial IVPUSH SCH (09:02)
[2022-03-10] MEDS: amLODIPine 10 MG Tab PO SCH (09:02)
[2022-03-10] MEDS: Metoprolol Tartrate 50 MG Tab PO SCH ×2 (09:07→20:01)
[2022-03-10] MEDS: FLUoxetine 10 MG Cap PO SCH (09:09)
[2022-03-10] MEDS: Acetaminophen 500 MG Tab PO SCH ×2 (09:09→20:02)
[2022-03-10] MEDS: Insulin Lispro 100 Units/ML 3 ML Vial SUBCUT SCH ×3 (15:51→17:41)
[2022-03-10] MEDS: busPIRone 15 MG Tab PO SCH (20:04)
[2022-03-10] MEDS: Doxepin 10 MG Cap PO SCH (20:04)
[2022-03-10] MEDS: REFRESH EYE EYEBOTH SCH ×2 (20:16→20:17)
[2022-03-11] MEDS: Sodium Chloride 0.9% 1,000 ML IV SCH ×2 (00:49→14:38)
[2022-03-11] MEDS: metroNIDAZOLE/Normal Saline 500 MG in Premix Bag 1 BAG IV SCH ×3 (03:35→18:34)
[2022-03-11] MEDS: Pantoprazole 20 MG Tab, Delayed Release PO SCH (06:52)
[2022-03-11 08:45] LABS: ANION GAP 15.5 mmol/L (5-15)
[2022-03-11] MEDS: Magnesium Sulfate/Water 2 GM in Premix Bag 1 BAG IV SCH (09:08)
[2022-03-11] MEDS: cefTRIAXone 1 GM Vial IVPUSH SCH (09:08)
[2022-03-11] MEDS: methylPREDNISolone Sodium Succinate 125 MG/2 ML SDV IVPUSH SCH (09:12)
[2022-03-11] MEDS: Acetaminophen 500 MG Tab PO SCH ×2 (09:20→20:00)
[2022-03-11] MEDS: Metoprolol Tartrate 50 MG Tab PO SCH ×2 (09:21→20:03)
[2022-03-11] MEDS: FLUoxetine 10 MG Cap PO SCH (09:27)
[2022-03-11] MEDS: amLODIPine 10 MG Tab PO SCH (09:28)
[2022-03-11] MEDS: Insulin Lispro 100 Units/ML 3 ML Vial SUBCUT SCH ×3 (09:30→18:02)
[2022-03-11] MEDS: REFRESH EYE EYEBOTH SCH ×3 (09:31→20:05)
[2022-03-11] MEDS: busPIRone 15 MG Tab PO SCH (20:03)
[2022-03-11] MEDS: Doxepin 10 MG Cap PO SCH (20:04)
[2022-03-12] MEDS: Sodium Chloride 0.9% 1,000 ML IV SCH (01:58)
[2022-03-12] MEDS: metroNIDAZOLE/Normal Saline 500 MG in Premix Bag 1 BAG IV SCH ×3 (03:12→18:39)
[2022-03-12] MEDS: Pantoprazole 20 MG Tab, Delayed Release PO SCH (07:04)
[2022-03-12 08:57] LABS: ANION GAP 17.4 mmol/L (5-15)
[2022-03-12] MEDS: Magnesium Sulfate/Water 2 GM in Premix Bag 1 BAG IV SCH (08:58)
[2022-03-12] MEDS: cefTRIAXone 1 GM Vial IVPUSH SCH (08:59)
[2022-03-12] MEDS: methylPREDNISolone Sodium Succinate 125 MG/2 ML SDV IVPUSH SCH (08:59)
[2022-03-12] MEDS: Insulin Lispro 100 Units/ML 3 ML Vial SUBCUT SCH ×3 (09:08→18:14)
[2022-03-12] MEDS: amLODIPine 10 MG Tab PO SCH (09:12)
[2022-03-12] MEDS: Metoprolol Tartrate 50 MG Tab PO SCH ×2 (09:13→20:22)
[2022-03-12] MEDS: Acetaminophen 500 MG Tab PO SCH ×2 (09:13→20:21)
[2022-03-12] MEDS: FLUoxetine 10 MG Cap PO SCH (09:15)
[2022-03-12] MEDS: REFRESH EYE EYEBOTH SCH ×3 (09:17→20:24)
[2022-03-12] MEDS ORDERED: Potassium Chloride 20 MEQ Tab.ER PO ONE ×2 (09:27→18:45)
[2022-03-12] MEDS: Doxepin 10 MG Cap PO SCH (20:20)
[2022-03-12] MEDS: busPIRone 15 MG Tab PO SCH (20:22)
[2022-03-13] MEDS: Sodium Chloride 0.9% 1,000 ML IV SCH ×2 (02:04→19:15)
[2022-03-13] MEDS: metroNIDAZOLE/Normal Saline 500 MG in Premix Bag 1 BAG IV SCH ×3 (03:19→19:15)
[2022-03-13] MEDS: Pantoprazole 20 MG Tab, Delayed Release PO SCH (06:12)
[2022-03-13 07:29] LABS: ANION GAP 16.7 mmol/L (5-15)
[2022-03-13] MEDS: FLUoxetine 10 MG Cap PO SCH (07:59)
[2022-03-13] MEDS: Metoprolol Tartrate 50 MG Tab PO SCH ×2 (08:00→20:00)
[2022-03-13] MEDS: amLODIPine 10 MG Tab PO SCH (08:01)
[2022-03-13] MEDS: Acetaminophen 500 MG Tab PO SCH ×2 (08:01→20:05)
[2022-03-13] MEDS: REFRESH EYE EYEBOTH SCH ×3 (08:03→20:09)
[2022-03-13] MEDS: cefTRIAXone 1 GM Vial IVPUSH SCH (08:09)
[2022-03-13] MEDS: Insulin Lispro 100 Units/ML 3 ML Vial SUBCUT SCH ×3 (08:15→18:43)
[2022-03-13] MEDS: predniSONE 20 MG Tab PO SCH (08:27)
[2022-03-13] MEDS: Psyllium Husk Powder Sugar Free 5.85 GM Packet PO SCH (08:27)
[2022-03-13] MEDS: Doxepin 10 MG Cap PO SCH (20:06)
[2022-03-13] MEDS: busPIRone 15 MG Tab PO SCH (20:06)
[2022-03-14] MEDS: metroNIDAZOLE/Normal Saline 500 MG in Premix Bag 1 BAG IV SCH (03:36)
[2022-03-14] MEDS: Pantoprazole 20 MG Tab, Delayed Release PO SCH (06:10)
[2022-03-14 06:53] LABS: ANION GAP 15.3 mmol/L (5-15)
[2022-03-14] MEDS: Metoprolol Tartrate 50 MG Tab PO SCH ×2 (08:43→20:05)
[2022-03-14] MEDS: amLODIPine 10 MG Tab PO SCH (08:45)
[2022-03-14] MEDS: predniSONE 20 MG Tab PO SCH (08:45)
[2022-03-14] MEDS: Acetaminophen 500 MG Tab PO SCH ×2 (08:46→20:04)
[2022-03-14] MEDS: FLUoxetine 10 MG Cap PO SCH (08:47)
[2022-03-14] MEDS: cefTRIAXone 1 GM Vial IVPUSH SCH (08:48)
[2022-03-14] MEDS: Insulin Lispro 100 Units/ML 3 ML Vial SUBCUT SCH ×3 (08:56→17:49)
[2022-03-14] MEDS: REFRESH EYE EYEBOTH SCH ×3 (08:56→20:13)
[2022-03-14] MEDS: metFORMIN 500 MG Tab PO SCH ×2 (09:27→17:49)
[2022-03-14] MEDS: Multivitamins with Iron/Calcium/Folic Acid/Minerals Tab PO SCH (09:28)
[2022-03-14] MEDS: Hydrochlorothiazide 12.5 MG Cap PO SCH (09:28)
[2022-03-14] MEDS: Potassium Chloride 10 MEQ Tab.ER PO SCH (09:28)
[2022-03-14] MEDS: Magnesium Oxide 400 MG Tab PO SCH (09:28)
[2022-03-14] MEDS: Psyllium Husk Powder Sugar Free 5.85 GM Packet PO SCH (09:29)
[2022-03-14] MEDS: Doxepin 10 MG Cap PO SCH (20:04)
[2022-03-14] MEDS: busPIRone 5 MG Tab PO SCH (20:04)
[2022-03-14] MEDS ORDERED: Oxybutynin 5 MG Tab.ER PO SCH (21:00)
[2022-03-14] MEDS ORDERED: busPIRone 5 MG Tab PO SCH (21:00)
[2022-03-15] MEDS ORDERED: Labetalol 20 MG/4 ML Syringe IVPUSH ONE (02:48)
[2022-03-15] MEDS: Pantoprazole 20 MG Tab, Delayed Release PO SCH (06:46)
[2022-03-15 07:04] LABS: ANION GAP 16.3 mmol/L (5-15)
[2022-03-15 09:50] VITALS: BP 165/57; PULSE 70
[2022-03-15] MEDS: Acetaminophen 500 MG Tab PO SCH (09:50)
[2022-03-15] MEDS: FLUoxetine 10 MG Cap PO SCH (09:50)
[2022-03-15] MEDS: Hydrochlorothiazide 12.5 MG Cap PO SCH (09:51)
[2022-03-15] MEDS: predniSONE 20 MG Tab PO SCH (09:51)
[2022-03-15] MEDS: metFORMIN 500 MG Tab PO SCH (09:51)
[2022-03-15] MEDS: Multivitamins with Iron/Calcium/Folic Acid/Minerals Tab PO SCH (09:52)
[2022-03-15] MEDS: Potassium Chloride 10 MEQ Tab.ER PO SCH (09:52)
[2022-03-15] MEDS: Psyllium Husk Powder Sugar Free 5.85 GM Packet PO SCH (09:52)
[2022-03-15] MEDS: Metoprolol Tartrate 50 MG Tab PO SCH (09:53)
[2022-03-15] MEDS: busPIRone 5 MG Tab PO SCH (09:53)
[2022-03-15] MEDS: Magnesium Oxide 400 MG Tab PO SCH (09:54)
[2022-03-15] MEDS: Insulin Lispro 100 Units/ML 3 ML Vial SUBCUT SCH (09:56)
[2022-03-15] MEDS: REFRESH EYE EYEBOTH SCH (09:56)
[2022-03-15] MEDS: amLODIPine 10 MG Tab PO SCH (09:57)
[2022-03-15] MEDS ORDERED: Oxybutynin 5 MG Tab.ER PO SCH (18:00)
== END 2022-03-15 11:40 | disposition home health service (06) | DRG 386 ==
LOC: SUPCPDRO 14:14 → VM.ED 14:14 → UNDOADMIN 19:28 → VM.MS 19:28
PROVIDERS: ADMIT Internal Medicine; ATTEND Family Medicine
DX: K51.00 Ulcerative (chronic) pancolitis without complications (principal); D62 Acute posthemorrhagic anemia; K92.2 Gastrointestinal hemorrhage, unspecified; N17.9 Acute kidney failure, unspecified; I25.10 Atherosclerotic heart disease of native coronary artery without angina pectoris; I10 Essential (primary) hypertension; K21.9 Gastro-esophageal reflux disease without esophagitis; R32 Unspecified urinary incontinence; R26.9 Unspecified abnormalities of gait and mobility; F41.9 Anxiety disorder, unspecified; E11.9 Type 2 diabetes mellitus without complications; E55.9 Vitamin D deficiency, unspecified; S00.93XA Contusion of unspecified part of head, initial encounter; W01.0XXA Fall on same level from slipping, tripping and stumbling without subsequent striking against object, initial encounter; Z20.822 Contact with and (suspected) exposure to COVID-19; R29.6 Repeated falls; I12.9 Hypertensive chronic kidney disease with stage 1 through stage 4 chronic kidney disease, or unspecified chronic kidney disease; N18.9 Chronic kidney disease, unspecified; W19.XXXA Unspecified fall, initial encounter; E87.6 Hypokalemia; E83.42 Hypomagnesemia; E11.22 Type 2 diabetes mellitus with diabetic chronic kidney disease; M81.0 Age-related osteoporosis without current pathological fracture; M19.90 Unspecified osteoarthritis, unspecified site; R41.3 Other amnesia; F03.90 Unspecified dementia, unspecified severity, without behavioral disturbance, psychotic disturbance, mood disturbance, and anxiety; Z79.899 Other long term (current) drug therapy; Z85.820 Personal history of malignant melanoma of skin; Z88.5 Allergy status to narcotic agent; Z79.82 Long term (current) use of aspirin; Z79.52 Long term (current) use of systemic steroids; Z79.84 Long term (current) use of oral hypoglycemic drugs; F41.1 Generalized anxiety disorder; Z96.653 Presence of artificial knee joint, bilateral; M17.0 Bilateral primary osteoarthritis of knee
CPT/HCPCS: 0240U; 36415; 70450; 74019; 74177; 80048; 80053; 81001; 82728; 82947; 83605; 83630; 83690; 83735; 84145; 85018; 85025; 85610; 85652; 86140; 87040; 87045; 87046; 87086; 96374; 96375; 97110; 97116; 97161; 99285; A9270-GY; J0696; J1170; J1815-GY; J2270; J2405; J2930; J3475; J3490; J7030; J7512; Q9967

== ENCOUNTER 2022-05-13 09:25 | Emergency (ER) | payer MEDICARE ==
[2022-05-13 10:16] VITALS: BP 183/71; PULSE 75
== END 2022-05-13 10:25 | disposition home or self-care (01) ==
LOC: VM.ED 09:25
DX: N30.00 Acute cystitis without hematuria (principal); I10 Essential (primary) hypertension; I25.10 Atherosclerotic heart disease of native coronary artery without angina pectoris; E11.9 Type 2 diabetes mellitus without complications; K21.9 Gastro-esophageal reflux disease without esophagitis; Z88.5 Allergy status to narcotic agent; Z79.84 Long term (current) use of oral hypoglycemic drugs; Z79.899 Other long term (current) drug therapy
CPT/HCPCS: 81001; 87086; 87088; 99283; 99284

== ENCOUNTER 2023-12-25 15:51 | Inpatient (IN) | payer MEDICARE ==
[2023-12-25] MEDS ORDERED: Acetaminophen 325 MG Tab PO PRN (16:02)
[2023-12-25] MEDS ORDERED: Ondansetron 4 MG Tab.DIS PO PRN (16:02)
[2023-12-25] MEDS ORDERED: Docusate Sodium 100 MG Cap PO PRN (16:21)
[2023-12-25] MEDS ORDERED: Loperamide 2 MG Cap PO PRN (16:21)
[2023-12-25 16:25] LABS: BASOPHILS ABSOLUTE AUTO 0.1 x10^3/uL (0.0-0.2); BASOPHILS PERCENT AUTO 0.7 % (0.2-1.2); EOSINOPHILS ABSOLUTE AUTO 0.4 x10^3/uL (0.0-0.5); EOSINOPHILS PERCENT AUTO 3.3 % (0.0-4.0); HEMATOCRIT 32.7 % (33.0-47.0); HEMOGLOBIN 11.3 g/dL (12.0-16.0); IMMATURE GRAN ABSOLUTE AUTO 0.08 x10^3/uL (0.00-0.07); LYMPHOCYTES ABSOLUTE AUTO 1.9 x10^3/uL (1.0-4.8); LYMPHOCYTES PERCENT AUTO 15.8 % (25.0-50.0); MEAN CORPUSCULAR HEMOGLOBIN 32.8 pg (26.0-32.0); MEAN CORPUSCULAR HGB CONC 34.6 g/dL (32.0-36.0); MEAN CORPUSCULAR VOLUME 94.8 fL (78.0-93.0); MONOCYTES ABSOLUTE AUTO 1.5 x10^3/uL (0.0-0.8); MONOCYTES PERCENT AUTO 12.6 % (2.0-11.0); NEUTROPHILS ABSOLUTE AUTO 8.1 x10^3/uL (1.8-7.7); NEUTROPHILS PERCENT AUTO 66.9 % (50.0-80.0); RED BLOOD CELL COUNT 3.45 x10^6/uL (4.00-5.50); WHITE BLOOD CELL COUNT,WBC 12.1 x10^3/uL (4.0-10.0)
[2023-12-25] MEDS: Furosemide 20 MG/2 ML VIAL IV SCH (16:34)
[2023-12-25 16:39] LABS: PLATELET COUNT,PLT 351 x10^3/uL (130-400)
[2023-12-25 16:49] LABS: A/G RATIO 0.63; ALBUMIN 3.1 g/dL (3.4-5.0); BILIRUBIN TOTAL 0.4 mg/dL (0.2-1.0); CALCIUM 9.4 mg/dL (8.5-10.1); CREATININE 1.1 mg/dL (0.55-1.02); EST CRCL DRUG DOSING (CG) 27.7 mL/min; POTASSIUM,K 4.2 mmol/L (3.5-5.1)
[2023-12-25] MEDS ORDERED: Calcium Carbonate 750 MG Tab.Chew PO PRN (16:49)
[2023-12-25 16:50] LABS: ANION GAP 19.2 mmol/L (5-15)
[2023-12-25] MEDS: Acetaminophen 500 MG Tab PO SCH (17:52)
[2023-12-25] MEDS: metFORMIN 500 MG Tab PO SCH (17:53)
[2023-12-25] MEDS: Ferrous Sulfate 325 MG Tab PO SCH (17:53)
[2023-12-25] MEDS: Simvastatin 20 MG Tab PO SCH (20:33)
[2023-12-25] MEDS: busPIRone 5 MG Tab PO SCH (20:34)
[2023-12-25] MEDS: Metoprolol Tartrate 50 MG Tab PO SCH (20:35)
[2023-12-25] MEDS: Hypromellose 0.3% Ophth Soln 15 ML Bottle EYEBOTH SCH (21:24)
[2023-12-25] MEDS: Doxepin 10 MG Cap PO SCH (21:47)
[2023-12-25] MEDS: Heparin Sodium 5,000 Units/ML Vial SUBCUT SCH (22:45)
[2023-12-26] MEDS: Pantoprazole 40 MG Tab.CR PO SCH (06:41)
[2023-12-26 07:00] LABS: HEMATOCRIT 34.7 % (33.0-47.0); MEAN CORPUSCULAR HEMOGLOBIN 32.2 pg (26.0-32.0); MEAN CORPUSCULAR HGB CONC 34.6 g/dL (32.0-36.0); RED BLOOD CELL COUNT 3.73 x10^6/uL (4.00-5.50); WHITE BLOOD CELL COUNT,WBC 10.9 x10^3/uL (4.0-10.0)
[2023-12-26 07:16] LABS: CALCIUM 9.3 mg/dL (8.5-10.1); EST CRCL DRUG DOSING (CG) 30.47 mL/min; POTASSIUM,K 3.6 mmol/L (3.5-5.1)
[2023-12-26 07:17] LABS: ANION GAP 17.6 mmol/L (5-15)
[2023-12-26 09:00] LABS: BASE EXCESS ARTERIAL,POC 0 mmol/L ((-2)-3); HCO3 ARTERIAL,POC 23.4 mmol/L (21-28); O2 SATURATION ARTERIAL,POC 92.9 % (94-98); PCO2 ARTERIAL,POC 30 mmHg (35-48); PH ARTERIAL,POC 7.49 pH (7.35-7.45); PO2 ARTERIAL,POC 60 mmHg (83-108); TCO2 ARTERIAL,POC 22.7 mmol/L (22-29)
[2023-12-26] MEDS ORDERED: Magnesium Oxide 400 MG Tab PO SCH (09:00)
[2023-12-26] MEDS: FLUoxetine 20 MG Cap PO SCH (09:10)
[2023-12-26] MEDS: Magnesium Oxide 400 MG Tab PO SCH (09:10)
[2023-12-26] MEDS: Beta-Carotene (Vitamin A) w/Vitamin C & E plus Minerals Tab PO SCH (09:10)
[2023-12-26] MEDS: Oxybutynin 5 MG Tab.ER PO SCH (09:11)
[2023-12-26] MEDS: Multivitamin Tab PO SCH (09:13)
[2023-12-26] MEDS: busPIRone 15 MG Tab PO SCH (09:14)
[2023-12-26] MEDS: amLODIPine 10 MG Tab PO SCH (09:15)
[2023-12-26] MEDS: Iopamidol 755 Mg/ML 100 ML Bottle IVPUSH ONE (10:52)
[2023-12-27 07:15] LABS: ANION GAP 16.7 mmol/L (5-15); CALCIUM 9.1 mg/dL (8.5-10.1); CREATININE 1.1 mg/dL (0.55-1.02); EST CRCL DRUG DOSING (CG) 27.7 mL/min; POTASSIUM,K 3.7 mmol/L (3.5-5.1)
[2023-12-27 07:30] LABS: A/G RATIO 0.54; ALBUMIN 2.6 g/dL (3.4-5.0); BILIRUBIN DIRECT 0.16 mg/dL (0.00-0.20); BILIRUBIN INDIRECT 0.24; BILIRUBIN TOTAL 0.4 mg/dL (0.2-1.0); PROTEIN TOTAL,TP 7.4 g/dL (6.4-8.2)
[2023-12-27] MEDS ORDERED: Albuterol 0.083% 2.5 MG/3 ML Neb Soln NEB PRN (08:23)
[2023-12-27] MEDS: Bumetanide 1 MG Tab PO SCH (09:33)
[2023-12-28] MEDS: Nystatin Crm 30 GM Tube TOP SCH (03:57)
[2023-12-28 06:15] VITALS: PULSE 80
[2023-12-28 07:02] LABS: CALCIUM 9.5 mg/dL (8.5-10.1); CREATININE 1.2 mg/dL (0.55-1.02); EST CRCL DRUG DOSING (CG) 25.39 mL/min
[2023-12-28 09:38] VITALS: BP 168/80
[2023-12-28] MEDS ORDERED: Simvastatin 20 MG Tab PO SCH (21:00)
== END 2023-12-28 12:45 | disposition swing bed (61) | DRG 291 ==
LOC: VM.MS 15:51
PROVIDERS: ADMIT Family Medicine; ATTEND Family Medicine
PROC: 4A033B1 Measurement of Arterial Pressure, Peripheral, Percutaneous Approach (ICD-10-PCS; principal; 2023-12-26)
PROC: 4A033R1 Measurement of Arterial Saturation, Peripheral, Percutaneous Approach (ICD-10-PCS; 2023-12-26)
DX: I13.0 Hypertensive heart and chronic kidney disease with heart failure and stage 1 through stage 4 chronic kidney disease, or unspecified chronic kidney disease (principal); I50.33 Acute on chronic diastolic (congestive) heart failure; J96.01 Acute respiratory failure with hypoxia; F03.94 Unspecified dementia, unspecified severity, with anxiety; E78.5 Hyperlipidemia, unspecified; Z66 Do not resuscitate; D50.9 Iron deficiency anemia, unspecified; M81.0 Age-related osteoporosis without current pathological fracture; E11.22 Type 2 diabetes mellitus with diabetic chronic kidney disease; N18.30 Chronic kidney disease, stage 3 unspecified; Z11.52 Encounter for screening for COVID-19; K21.9 Gastro-esophageal reflux disease without esophagitis; I08.0 Rheumatic disorders of both mitral and aortic valves; K52.9 Noninfective gastroenteritis and colitis, unspecified; D63.1 Anemia in chronic kidney disease; B37.2 Candidiasis of skin and nail; I25.10 Atherosclerotic heart disease of native coronary artery without angina pectoris; M19.90 Unspecified osteoarthritis, unspecified site; G47.00 Insomnia, unspecified; F41.9 Anxiety disorder, unspecified; F60.3 Borderline personality disorder; Z96.653 Presence of artificial knee joint, bilateral; Z96.619 Presence of unspecified artificial shoulder joint; E83.42 Hypomagnesemia; Z85.820 Personal history of malignant melanoma of skin; Z98.49 Cataract extraction status, unspecified eye; Z90.49 Acquired absence of other specified parts of digestive tract; Z90.710 Acquired absence of both cervix and uterus; Z88.5 Allergy status to narcotic agent; Z79.84 Long term (current) use of oral hypoglycemic drugs; Z79.899 Other long term (current) drug therapy; Z86.010 Personal history of colon polyps
CPT/HCPCS: 36415; 36600; 71046; 71275; 80048; 80053; 80076; 82803; 82947; 83735; 83880; 84484; 85025; 85027; 85379; 93005; 94760; 97110-GP; 97116-GP; 97162-GP; 97166-GO; 97535-GO; A9270-GY; J1644; J1940; Q9967; U0002

== ENCOUNTER 2023-12-28 09:01 | Inpatient (IN) | payer MEDICARE ==
[2023-12-28] MEDS ORDERED: Calcium Carbonate 750 MG Tab.Chew PO PRN (12:16)
[2023-12-28] MEDS ORDERED: Albuterol 0.083% 2.5 MG/3 ML Neb Soln NEB PRN (12:16)
[2023-12-28] MEDS ORDERED: Loperamide 2 MG Cap PO PRN (12:16)
[2023-12-28] MEDS: Hypromellose 0.3% Ophth Soln 15 ML Bottle EYEBOTH SCH (16:34)
[2023-12-28] MEDS: Heparin Sodium 5,000 Units/ML Vial SUBCUT SCH (16:35)
[2023-12-28] MEDS: Acetaminophen 500 MG Tab PO SCH (16:35)
[2023-12-28] MEDS: metFORMIN 500 MG Tab PO SCH (18:16)
[2023-12-28] MEDS: Ferrous Sulfate 325 MG Tab PO SCH (18:17)
[2023-12-28] MEDS: busPIRone 5 MG Tab PO SCH (21:47)
[2023-12-28] MEDS: Simvastatin 20 MG Tab PO SCH (21:48)
[2023-12-28] MEDS: Doxepin 10 MG Cap PO SCH (21:48)
[2023-12-28] MEDS: Magnesium Oxide 400 MG Tab PO SCH (21:49)
[2023-12-28] MEDS: Metoprolol Tartrate 50 MG Tab PO SCH (21:52)
[2023-12-28] MEDS: Nystatin Crm 30 GM Tube TOP SCH (21:55)
[2023-12-29] MEDS: Mineral Oil/Petrolatum Ophth Oint 3.5 GM Tube EYEBOTH SCH (02:33)
[2023-12-29] MEDS: Pantoprazole 40 MG Tab.CR PO SCH (06:42)
[2023-12-29 08:35] LABS: HEMATOCRIT 32.6 % (33.0-47.0); HEMOGLOBIN 11.4 g/dL (12.0-16.0); MEAN CORPUSCULAR HEMOGLOBIN 32.8 pg (26.0-32.0); MEAN CORPUSCULAR VOLUME 93.7 fL (78.0-93.0); RED BLOOD CELL COUNT 3.48 x10^6/uL (4.00-5.50); WHITE BLOOD CELL COUNT,WBC 12.2 x10^3/uL (4.0-10.0)
[2023-12-29] MEDS: Beta-Carotene (Vitamin A) w/Vitamin C & E plus Minerals Tab PO SCH (09:01)
[2023-12-29] MEDS: FLUoxetine 20 MG Cap PO SCH (09:02)
[2023-12-29] MEDS: Multivitamin Tab PO SCH (09:03)
[2023-12-29] MEDS: Oxybutynin 5 MG Tab.ER PO SCH (09:03)
[2023-12-29] MEDS: amLODIPine 10 MG Tab PO SCH (09:04)
[2023-12-29] MEDS: Bumetanide 1 MG Tab PO SCH (09:05)
[2023-12-29] MEDS: busPIRone 15 MG Tab PO SCH (09:12)
[2023-12-31 07:23] LABS: A/G RATIO 0.49; ALBUMIN 2.4 g/dL (3.4-5.0); BILIRUBIN TOTAL 0.3 mg/dL (0.2-1.0); CALCIUM 9.1 mg/dL (8.5-10.1); CREATININE 1.4 mg/dL (0.55-1.02); EST CRCL DRUG DOSING (CG) 23.86 mL/min; MAGNESIUM 1.5 mg/dL (1.8-2.4); POTASSIUM,K 4.2 mmol/L (3.5-5.1); PROTEIN TOTAL,TP 7.3 g/dL (6.4-8.2)
[2023-12-31 07:24] LABS: ANION GAP 16.2 mmol/L (5-15)
[2023-12-31] MEDS: metFORMIN 500 MG Tab PO SCH (09:39)
[2023-12-31] MEDS: Loperamide 2 MG Cap PO SCH (09:42)
[2024-01-01 06:59] LABS: HEMATOCRIT 32.2 % (33.0-47.0); HEMOGLOBIN 10.8 g/dL (12.0-16.0); MEAN CORPUSCULAR HEMOGLOBIN 31.8 pg (26.0-32.0); MEAN CORPUSCULAR HGB CONC 33.5 g/dL (32.0-36.0); MEAN CORPUSCULAR VOLUME 94.7 fL (78.0-93.0); RED BLOOD CELL COUNT 3.4 x10^6/uL (4.00-5.50); WHITE BLOOD CELL COUNT,WBC 10.7 x10^3/uL (4.0-10.0)
[2024-01-01] MEDS: Heparin Sodium 5,000 Units/ML Vial SUBCUT SCH (22:32)
[2024-01-01] MEDS: Acetaminophen 500 MG Tab PO SCH (22:32)
[2024-01-02 07:16] LABS: A/G RATIO 0.51; ALBUMIN 2.5 g/dL (3.4-5.0); CALCIUM 9.3 mg/dL (8.5-10.1); CREATININE 1.5 mg/dL (0.55-1.02); EST CRCL DRUG DOSING (CG) 22.27 mL/min; POTASSIUM,K 5.1 mmol/L (3.5-5.1); PROTEIN TOTAL,TP 7.4 g/dL (6.4-8.2)
[2024-01-02 07:43] LABS: ANION GAP 15.1 mmol/L (5-15)
[2024-01-02 08:18] LABS: BILIRUBIN TOTAL 0.4 mg/dL (0.2-1.0)
[2024-01-04 06:58] LABS: HEMATOCRIT 29.2 % (33.0-47.0); MEAN CORPUSCULAR HEMOGLOBIN 32.4 pg (26.0-32.0); MEAN CORPUSCULAR HGB CONC 34.2 g/dL (32.0-36.0); MEAN CORPUSCULAR VOLUME 94.5 fL (78.0-93.0); RED BLOOD CELL COUNT 3.09 x10^6/uL (4.00-5.50); WHITE BLOOD CELL COUNT,WBC 10.9 x10^3/uL (4.0-10.0)
[2024-01-04] MEDS: Ondansetron 4 MG Tab.DIS PO PRN (11:37)
[2024-01-07 06:43] LABS: HEMATOCRIT 31.5 % (33.0-47.0); HEMOGLOBIN 10.6 g/dL (12.0-16.0); MEAN CORPUSCULAR HEMOGLOBIN 31.7 pg (26.0-32.0); MEAN CORPUSCULAR HGB CONC 33.7 g/dL (32.0-36.0); MEAN CORPUSCULAR VOLUME 94.3 fL (78.0-93.0); RED BLOOD CELL COUNT 3.34 x10^6/uL (4.00-5.50); WHITE BLOOD CELL COUNT,WBC 10.9 x10^3/uL (4.0-10.0)
[2024-01-07 07:08] LABS: A/G RATIO 0.62; ALBUMIN 2.9 g/dL (3.4-5.0); BILIRUBIN TOTAL 0.3 mg/dL (0.2-1.0); C-REACTIVE PROTEIN 1.33 mg/dL (<=0.50); CALCIUM 9.5 mg/dL (8.5-10.1); CREATININE 2.1 mg/dL (0.55-1.02); EST CRCL DRUG DOSING (CG) 15.91 mL/min; MAGNESIUM 2.3 mg/dL (1.8-2.4); POTASSIUM,K 4.8 mmol/L (3.5-5.1); PROTEIN TOTAL,TP 7.6 g/dL (6.4-8.2)
[2024-01-07 07:09] LABS: ANION GAP 13.8 mmol/L (5-15)
[2024-01-07] MEDS ORDERED: Sodium Chloride 0.9% 10 ML Syringe IV PRN (16:27)
[2024-01-07] MEDS: Sodium Chloride 0.9% 1,000 ML IV SCH (22:12)
[2024-01-08 06:59] LABS: ANION GAP 15.5 mmol/L (5-15); CALCIUM 9.2 mg/dL (8.5-10.1); CREATININE 1.6 mg/dL (0.55-1.02); EST CRCL DRUG DOSING (CG) 20.88 mL/min; POTASSIUM,K 4.5 mmol/L (3.5-5.1)
[2024-01-08] MEDS: Hydrochlorothiazide 12.5 MG Cap PO SCH (09:22)
[2024-01-08] MEDS: Iopamidol 612 MG/ML 100 ML Bottle IVPUSH ONE (10:28)
[2024-01-08] MEDS: Iopamidol 612 MG/ML 30 ML SDV PO ONE (10:29)
[2024-01-09] MEDS: Docusate Sodium 100 MG Cap PO PRN (21:44)
[2024-01-10 06:42] LABS: HEMATOCRIT 33.8 % (33.0-47.0); HEMOGLOBIN 11.6 g/dL (12.0-16.0); MEAN CORPUSCULAR HGB CONC 34.3 g/dL (32.0-36.0); MEAN CORPUSCULAR VOLUME 93.4 fL (78.0-93.0); RED BLOOD CELL COUNT 3.62 x10^6/uL (4.00-5.50); WHITE BLOOD CELL COUNT,WBC 10.4 x10^3/uL (4.0-10.0)
[2024-01-10 07:13] LABS: A/G RATIO 0.67; ALBUMIN 3.1 g/dL (3.4-5.0); BILIRUBIN TOTAL 0.4 mg/dL (0.2-1.0); C-REACTIVE PROTEIN 0.78 mg/dL (<=0.50); CALCIUM 9.7 mg/dL (8.5-10.1); CREATININE 1.3 mg/dL (0.55-1.02); EST CRCL DRUG DOSING (CG) 25.7 mL/min; POTASSIUM,K 4.1 mmol/L (3.5-5.1); PROTEIN TOTAL,TP 7.7 g/dL (6.4-8.2)
[2024-01-10 07:14] LABS: ANION GAP 15.1 mmol/L (5-15)
[2024-01-10] MEDS: Magnesium Hydroxide 400 MG/5 ML Susp 30 ML Cup PO ONE (09:08)
[2024-01-10] MEDS: Hydrochlorothiazide 25 MG Tab PO SCH (09:09)
[2024-01-10] MEDS: Ferrous Sulfate 325 MG Tab PO SCH (09:10)
[2024-01-13 08:19] LABS: HEMATOCRIT 33.2 % (33.0-47.0); HEMOGLOBIN 11.3 g/dL (12.0-16.0); MEAN CORPUSCULAR HEMOGLOBIN 31.9 pg (26.0-32.0); MEAN CORPUSCULAR VOLUME 93.8 fL (78.0-93.0); RED BLOOD CELL COUNT 3.54 x10^6/uL (4.00-5.50); WHITE BLOOD CELL COUNT,WBC 9.5 x10^3/uL (4.0-10.0)
[2024-01-14 07:11] LABS: BASOPHILS ABSOLUTE AUTO 0.1 x10^3/uL (0.0-0.2); EOSINOPHILS ABSOLUTE AUTO 0.8 x10^3/uL (0.0-0.5); EOSINOPHILS PERCENT AUTO 7.3 % (0.0-4.0); HEMATOCRIT 31.9 % (33.0-47.0); HEMOGLOBIN 10.6 g/dL (12.0-16.0); IMMATURE GRAN ABSOLUTE AUTO 0.17 x10^3/uL (0.00-0.07); LYMPHOCYTES PERCENT AUTO 18.9 % (25.0-50.0); MEAN CORPUSCULAR HEMOGLOBIN 31.5 pg (26.0-32.0); MEAN CORPUSCULAR HGB CONC 33.2 g/dL (32.0-36.0); MEAN CORPUSCULAR VOLUME 94.7 fL (78.0-93.0); MONOCYTES ABSOLUTE AUTO 1.5 x10^3/uL (0.0-0.8); MONOCYTES PERCENT AUTO 14.1 % (2.0-11.0); NEUTROPHILS PERCENT AUTO 57.1 % (50.0-80.0); PLATELET COUNT,PLT 297 x10^3/uL (130-400); RED BLOOD CELL COUNT 3.37 x10^6/uL (4.00-5.50); WHITE BLOOD CELL COUNT,WBC 10.5 x10^3/uL (4.0-10.0)
[2024-01-14 07:54] LABS: A/G RATIO 0.69; ALBUMIN 2.9 g/dL (3.4-5.0); BILIRUBIN TOTAL 0.3 mg/dL (0.2-1.0); CALCIUM 9.3 mg/dL (8.5-10.1); CREATININE 1.7 mg/dL (0.55-1.02); EST CRCL DRUG DOSING (CG) 19.65 mL/min; POTASSIUM,K 4.4 mmol/L (3.5-5.1); PROTEIN TOTAL,TP 7.1 g/dL (6.4-8.2)
[2024-01-14 07:57] LABS: ANION GAP 15.4 mmol/L (5-15)
[2024-01-14] MEDS: Oxybutynin 5 MG Tab.ER PO SCH (11:44)
[2024-01-14] MEDS: Ferrous Sulfate 325 MG Tab PO SCH (11:44)
[2024-01-14] MEDS: Magnesium Oxide 400 MG Tab PO SCH (11:45)
[2024-01-14] MEDS: Acetaminophen 325 MG Tab PO PRN (16:35)
[2024-01-14] MEDS: Docusate Sodium 100 MG Cap PO SCH (21:58)
[2024-01-16 06:39] LABS: HEMATOCRIT 31.3 % (33.0-47.0); HEMOGLOBIN 10.6 g/dL (12.0-16.0); MEAN CORPUSCULAR HEMOGLOBIN 32.1 pg (26.0-32.0); MEAN CORPUSCULAR HGB CONC 33.9 g/dL (32.0-36.0); MEAN CORPUSCULAR VOLUME 94.8 fL (78.0-93.0); RED BLOOD CELL COUNT 3.3 x10^6/uL (4.00-5.50); WHITE BLOOD CELL COUNT,WBC 8.9 x10^3/uL (4.0-10.0)
[2024-01-16 07:07] LABS: A/G RATIO 0.71; BILIRUBIN TOTAL 0.4 mg/dL (0.2-1.0); CALCIUM 9.3 mg/dL (8.5-10.1); CREATININE 1.3 mg/dL (0.55-1.02); EST CRCL DRUG DOSING (CG) 25.7 mL/min; POTASSIUM,K 4.4 mmol/L (3.5-5.1); PROTEIN TOTAL,TP 7.2 g/dL (6.4-8.2)
[2024-01-16 07:08] LABS: ANION GAP 16.4 mmol/L (5-15)
[2024-01-16] MEDS: Loperamide 2 MG Cap PO SCH (09:31)
[2024-01-16] MEDS: LORazepam 0.5 MG Tab PO PRN (23:43)
[2024-01-17 08:44] VITALS: PULSE 60
[2024-01-17 15:13] VITALS: BP 132/50
== END 2024-01-17 16:00 | disposition home health service (06) | DRG 947 ==
LOC: VM.MS 12:54
PROVIDERS: ADMIT Family Medicine; ATTEND Family Medicine
DX: R53.81 Other malaise (principal); I50.33 Acute on chronic diastolic (congestive) heart failure; J96.01 Acute respiratory failure with hypoxia; K85.30 Drug induced acute pancreatitis without necrosis or infection; I13.0 Hypertensive heart and chronic kidney disease with heart failure and stage 1 through stage 4 chronic kidney disease, or unspecified chronic kidney disease; F03.94 Unspecified dementia, unspecified severity, with anxiety; E46 Unspecified protein-calorie malnutrition; F03.93 Unspecified dementia, unspecified severity, with mood disturbance; N18.30 Chronic kidney disease, stage 3 unspecified; K59.00 Constipation, unspecified; T50.1X5A Adverse effect of loop [high-ceiling] diuretics, initial encounter; E11.22 Type 2 diabetes mellitus with diabetic chronic kidney disease; K21.9 Gastro-esophageal reflux disease without esophagitis; M81.0 Age-related osteoporosis without current pathological fracture; I08.0 Rheumatic disorders of both mitral and aortic valves; I25.10 Atherosclerotic heart disease of native coronary artery without angina pectoris; M19.90 Unspecified osteoarthritis, unspecified site; K52.9 Noninfective gastroenteritis and colitis, unspecified; E83.42 Hypomagnesemia; E78.00 Pure hypercholesterolemia, unspecified; L24.89 Irritant contact dermatitis due to other agents; D63.1 Anemia in chronic kidney disease; Z88.5 Allergy status to narcotic agent; Z79.84 Long term (current) use of oral hypoglycemic drugs; Z90.49 Acquired absence of other specified parts of digestive tract; Z90.89 Acquired absence of other organs; Z98.49 Cataract extraction status, unspecified eye; Z79.899 Other long term (current) drug therapy; Z86.010 Personal history of colon polyps; Z96.659 Presence of unspecified artificial knee joint; Z96.619 Presence of unspecified artificial shoulder joint; Z90.710 Acquired absence of both cervix and uterus
CPT/HCPCS: 36415; 71046; 71250; 74177; 80048; 80053; 82947; 83690; 83735; 83880; 85025; 85027; 86140; 94760; 95851-GO; 97110-GP; 97116-GP; 97164-GP; 97530-GO; 97530-GP; 97535-GO; A9270-GY; J1644; J7030; Q9967